=== PATIENT | male | born 1985 | race Caucasian/White ===

== ENCOUNTER 2016-08-07 13:01 | Inpatient (IN) ==
[2016-08-07] MEDS ORDERED: Sodium Bicarbonate 50 MEQ/50 ML VIAL IVP ONE (13:18)
[2016-08-07] MEDS ORDERED: *HR* Etomidate 20 MG/10 ML AMPUL IVP ONE (13:18)
[2016-08-07] MEDS ORDERED: *HR* Succinylcholine 200 MG/10 ML VIAL IVP ONE (13:18)
[2016-08-07] MEDS ORDERED: *HR* Rocuronium Bromide 50 MG/5 ML VIAL IVP ONE (13:18)
--- NOTE | 2016-08-07 13:25 | Emergency Department Note ---
Disposition Clinical Impression: Acute kidney injury, Respiratory acidosis Altered mental status Qualifiers: Altered mental status type: unspecified Qualified Code(s): R41.82 - Altered mental status, unspecified Leukocytosis Qualifiers: Leukocytosis type: unspecified Qualified Code(s): D72.829 - Elevated white blood cell count, unspecified Disposition: Admitted As Inpatient Condition: Critical Time of Disposition: 13:57 Altered Mental Status HPI - General Chief Complaint: ED Overdose Stated Complaint: OD Time Seen by Provider: 08/07/16 13:06 Source: EMS Mode of arrival: EMS Limitations: altered mental status, other Nursing Notes Reviewed: Yes Vital Signs Reviewed: Yes - History of Present Illness HPI Narrative: Patient presents from home with altered mental status. The patient is unable to convey any meaningful history. He was found unresponsive by EMS. Intraosseous line started. Narcan given without improvement in symptoms. MD complaint: altered mental status, decreased responsiveness Onset (ago): unknown Consistency of Symptoms: constant Context: drug abuse, history of similar presentation Treatments prior to arrival: IV fluid, spinal immobilization - Related Data Home Medications Medication Instructions Recorded Confirmed No Known Home Drugs 08/07/16 08/07/16 Allergies Allergy/AdvReac Type Severity Reaction Status Date / Time No Known Allergies Allergy Verified 07/22/15 09:44 Limitations: ROS unobtainable due to patients medical condition Past Medical History - Past Medical History Source: old records reviewed Medical history: Reports: no medical history, non-contributory Psychiatric history: Reports: anxiety, depression - Social History Smoking Status: Current every day smoker Smokeless Tobacco Status: No Alcohol use: Reports: occasionally Drug use: Reports: cocaine, opiates, marijuana, IVDU, prescription drug abuse, other Physical Exam obtunded. Not arousable to verbal or painful stimuli. Spontaneous respirations present - General Limitations: altered mental status, other General appearance: obtunded, other - Head Head exam: atraumatic - Eye Eye exam: Present: PERRL (Dilated and sluggish) - ENT ENT exam: normal exam - Neck Neck exam: Present: normal inspection - Chest Chest inspection: Present: normal inspection, symmetric chest wall rise - Respiratory Respiratory exam: Present: other (Course rhonchorous breath sounds) - Cardiovascular Cardiovascular exam: Present: tachycardia, normal heart sounds - Abdominal Exam Abdominal exam: Present: soft - Rectal Exam Rectal exam: Present: deferred - Male exam: Present: other (Raised verrucous lesions on scrotum) - Extremities Exam Extremities exam: Present: normal inspection, other (Track johnson present to LUE) - Neurological Exam Neurological exam: Present: other (Nonverbal. Does not follow commands) - Skin Skin exam: Present: normal color, other (skin cool to touch) Course Course Narrative: Patient presents with altered mental status. Suspicion for opiate use. The patient was given Narcan prehospital without improvement of symptoms I did review the patient's most recent ED visit and was documented at that time that he was using cocaine and opiates but had no previous medical history otherwise We gave the patient rocuronium and etomidate for rapid sequence intubation. The patient continued having spontaneous respirations. We suspected that the intraosseous line was ineffective. Additional IV placement obtained and additional RSI medications given. Patient intubated by the resident physician under my supervision on first attempt. Right femoral triple lumen catheter placed by the resident physician under my supervision. Specimens sent to lab - Reevaluation(s) Reevaluation #1: The patient has a significant leukocytosis with neutrophilic predominance and bandemia. His history is not consistent with sepsis. I favor the elevated white count and shift to be secondary to a stress response. Dr. Bianchi agreeable to admit the patient. It was mutually agreed to withhold antibiotic therapy pending reevaluation and blood cultures. Reevaluation #2: Additional information obtained from the patient's mom. She last saw him around midnight last night which was approximately 13 hours ago. She suspects substance abuse. The patient had no complaints prior to this - Consultations Consultation #1: Dr. Dougherty accepts ICU admission Vital Signs Temperature 0 F L 08/07/16 13:02 Pulse Rate 129 08/07/16 13:02 Respiratory Rate 33 08/07/16 13:02 Blood Pressure 0/0 08/07/16 13:02 O2 Sat by Pulse Oximetry 100 08/07/16 13:02 Temperature 0 F L 08/07/16 13:02 Pulse Rate 111 08/07/16 13:18 Respiratory Rate 18 08/07/16 13:48 Blood Pressure 175/118 08/07/16 13:18 O2 Sat by Pulse Oximetry 100 08/07/16 13:48 Oxygen Delivery Oxygen Delivery Ventilator Procedures - Central Line Placement Right Femoral Central Line Inserted*: Yes Central Line Insertion: emergent Procedural Pause: amina and assess the site Patient Placed on Monitor/Pulse Ox: Yes During the Procedure: clinician is wearing sterile gloves, cap, mask,& gown during insertion Central Line Prep: Povidone-Iodine 1% Prep the Procedure Site: apply chloraprep to the skin using a back and forth scrubbing motion, allow prep to dry Ultrasound Used for Placement: No Central Line Lumen Inserted: triple Post Procedure: sutured in place Complications: none - Intubation Time out performed: No sedative: Etomidate paralytic: Rocuronium Laryngoscope: Mayi ET Tube Size: 7.5 ET Tube Uncuffed: No Tube Secured Location: lips Tube Placement Confirmation: visualized tube passing through cords, equal breath sounds bilaterally Patient Tolerated Procedure: no complications Intubation Complications: none Altered Mental Status - Medical Records Medical records reviewed: Yes I reviewed the patient's medical records. - Lab Data Lab results reviewed: Yes I reviewed the patient's lab results. Result diagrams: 08/07/16 13:20 08/07/16 13:20 Lab Results 08/07/16 08/07/16 08/07/16 Range/Units 13:03 13:18 13:18 WBC (4.3-11.1) K/mcL RBC (4.19-5.50) M/mcL Hgb (12.9-16.9) g/dL Hct (37.5-50.1) % MCV (83.0-100.0) fL MCH (28.0-33.3) pg MCHC (31.6-35.5) g/dL RDW (11.5-14.5) % Plt Count (140-400) K/mcL MPV (9.4-12.4) fL Seg Neutrophils % % Band Neutrophils % (0-4) % Lymphocytes % % Monocytes % % Neutrophils # (1.6-8.9) K/mcL Lymphocytes # (0.6-4.6) K/mcL Monocytes # (0.0-1.3) K/mcL Platelet Estimate (Normal) ABG pH (7.32-7.45) pH Units ABG pCO2 (35-45) mmHg ABG pO2 (85-104) mmHg ABG HCO3 (21-27) mEQ/L ABG Total CO2 (20-26) mEq/L ABG O2 Saturation (95-98) % ABG Base Excess (-2.0 to 3.0) mEq/L Blood Gas Modality Inspired O2 % Sodium (136-145) mEq/L Potassium (3.5-4.5) mEq/L Chloride (98-109) mEq/L Carbon Dioxide (19-29) mEq/L BUN (8-26) mg/dL Creatinine (0.72-1.25) mg/dL Est GFR ( Amer) (> 60) Est GFR (Non-Af Amer) (> 60) BUN/Creatinine Ratio (6-26) Glucose (70-99) mg/dL POC Glucose 59 (58-89) Calculated Osmolality (280-300) Calcium (8.6-10.8) mg/dL Total Bilirubin (0.2-1.2) mg/dL Direct Bilirubin (0.0-0.5) mg/dL Indirect Bilirubin (0.0-1.2) mg/dL AST (5-34) Units/L ALT (0-55) Units/L Alkaline Phosphatase (38-126) Units/L Creatine Kinase (30-200) Units/L Serum Total Protein (6.0-8.3) g/dL Albumin (3.5-5.0) g/dL Globulin (2.4-3.5) g/dL Albumin/Globulin Ratio (1.1-2.2) Urine Color Yellow (Yellow) Urine Clarity Cloudy A (Clear) Urine pH 6.0 (5.0-8.0) pH Units Ur Specific [place] 1.016 (1.010-1.025) Urine Protein 30 H (Neg-Trace) mg/dL Urine Glucose (UA) Normal (Normal) mg/dL Urine Ketones Negative (Negative) mg/dL Urine Blood Moderate H (Negative) Urine Nitrite Negative (Negative) Urine Bilirubin Negative (Negative) Urine Urobilinogen Normal (Normal) mg/dL Ur Leukocyte Esterase Negative (Negative) Urine Microscopic RBC 15-30 H (0-3) per hpf Urine Microscopic WBC 5-15 H (0-3) per hpf Ur Squamous Epith Cells Many H (None-Few) per lpf Urine Bacteria None Seen (None-Few) per hpf Hyaline Casts Few (None-Few) per lpf Salicylates (15-30) mg/dL Urine Opiates Screen Negative (Ofvxvg=803) ng/mL Acetaminophen (10-30) mcg/mL Ur Barbiturates Screen Negative (Mhvwaq=479) ng/mL Ur Phencyclidine Scrn Negative (Cutoff=25) ng/mL Ur Amphetamines Screen Negative (Xffkmh=8244) ng/mL U Benzodiazepines Scrn Negative (Emjkdm=127) ng/mL Urine Cocaine Screen Positive H (Cutoff= 300) ng/mL U Marijuana (THC) Screen Negative (Cutoff = 50) ng/mL Ethyl Alcohol (0-10) mg/dL 08/07/16 08/07/16 08/07/16 Range/Units 13:20 13:20 13:20 WBC 28.5 H (4.3-11.1) K/mcL RBC 5.00 (4.19-5.50) M/mcL Hgb 15.1 (12.9-16.9) g/dL Hct 46.7 (37.5-50.1) % MCV 93.4 (83.0-100.0) fL MCH 30.2 (28.0-33.3) pg MCHC 32.3 (31.6-35.5) g/dL RDW 13.0 (11.5-14.5) % Plt Count 259 (140-400) K/mcL MPV 8.9 L (9.4-12.4) fL Seg Neutrophils % 82.0 % Band Neutrophils % 10.0 H (0-4) % Lymphocytes % 4.0 % Monocytes % 4.0 % Neutrophils # 26.2 H (1.6-8.9) K/mcL Lymphocytes # 1.1 (0.6-4.6) K/mcL Monocytes # 1.1 (0.0-1.3) K/mcL Platelet Estimate Normal (Normal) ABG pH (7.32-7.45) pH Units ABG pCO2 (35-45) mmHg ABG pO2 (85-104) mmHg ABG HCO3 (21-27) mEQ/L ABG Total CO2 (20-26) mEq/L ABG O2 Saturation (95-98) % ABG Base Excess (-2.0 to 3.0) mEq/L Blood Gas Modality Inspired O2 % Sodium 143 (136-145) mEq/L Potassium 5.4 H (3.5-4.5) mEq/L Chloride 103 (98-109) mEq/L Carbon Dioxide 17 L (19-29) mEq/L BUN 15 (8-26) mg/dL Creatinine 2.61 H (0.72-1.25) mg/dL Est GFR ( Amer) 35 L (> 60) Est GFR (Non-Af Amer) 29 L (> 60) BUN/Creatinine Ratio 6 (6-26) Glucose 49 L (70-99) mg/dL POC Glucose (58-89) Calculated Osmolality 294 (280-300) Calcium 8.7 (8.6-10.8) mg/dL Total Bilirubin 0.3 (0.2-1.2) mg/dL Direct Bilirubin 0.2 (0.0-0.5) mg/dL Indirect Bilirubin 0.1 (0.0-1.2) mg/dL AST 67 H (5-34) Units/L ALT 74 H (0-55) Units/L Alkaline Phosphatase 89 (38-126) Units/L Creatine Kinase 426 H (30-200) Units/L Serum Total Protein 8.9 H (6.0-8.3) g/dL Albumin 4.3 (3.5-5.0) g/dL Globulin 4.6 H (2.4-3.5) g/dL Albumin/Globulin Ratio 0.9 L (1.1-2.2) Urine Color (Yellow) Urine Clarity (Clear) Urine pH (5.0-8.0) pH Units Ur Specific [place] (1.010-1.025) Urine Protein (Neg-Trace) mg/dL Urine Glucose (UA) (Normal) mg/dL Urine Ketones (Negative) mg/dL Urine Blood (Negative) Urine Nitrite (Negative) Urine Bilirubin (Negative) Urine Urobilinogen (Normal) mg/dL Ur Leukocyte Esterase (Negative) Urine Microscopic RBC (0-3) per hpf Urine Microscopic WBC (0-3) per hpf Ur Squamous Epith Cells (None-Few) per lpf Urine Bacteria (None-Few) per hpf Hyaline Casts (None-Few) per lpf Salicylates < 5.0 L (15-30) mg/dL Urine Opiates Screen (Jonvnf=934) ng/mL Acetaminophen < 1.0 L (10-30) mcg/mL Ur Barbiturates Screen (Zbnsks=828) ng/mL Ur Phencyclidine Scrn (Cutoff=25) ng/mL Ur Amphetamines Screen (Ykznfv=1188) ng/mL U Benzodiazepines Scrn (Lsygma=489) ng/mL Urine Cocaine Screen (Cutoff= 300) ng/mL U Marijuana (THC) Screen (Cutoff = 50) ng/mL Ethyl Alcohol < 10 (0-10) mg/dL 08/07/16 Range/Units 13:27 WBC (4.3-11.1) K/mcL RBC (4.19-5.50) M/mcL Hgb (12.9-16.9) g/dL Hct (37.5-50.1) % MCV (83.0-100.0) fL MCH (28.0-33.3) pg MCHC (31.6-35.5) g/dL RDW (11.5-14.5) % Plt Count (140-400) K/mcL MPV (9.4-12.4) fL Seg Neutrophils % % Band Neutrophils % (0-4) % Lymphocytes % % Monocytes % % Neutrophils # (1.6-8.9) K/mcL Lymphocytes # (0.6-4.6) K/mcL Monocytes # (0.0-1.3) K/mcL Platelet Estimate (Normal) ABG pH 7.13 L* (7.32-7.45) pH Units ABG pCO2 59 H (35-45) mmHg ABG pO2 403 H (85-104) mmHg ABG HCO3 19.6 L (21-27) mEQ/L ABG Total CO2 21.4 (20-26) mEq/L ABG O2 Saturation 100 H (95-98) % ABG Base Excess -10.4 L (-2.0 to 3.0) mEq/L Blood Gas Modality VC Inspired O2 100 % Sodium (136-145) mEq/L Potassium (3.5-4.5) mEq/L Chloride (98-109) mEq/L Carbon Dioxide (19-29) mEq/L BUN (8-26) mg/dL Creatinine (0.72-1.25) mg/dL Est GFR ( Amer) (> 60) Est GFR (Non-Af Amer) (> 60) BUN/Creatinine Ratio (6-26) Glucose (70-99) mg/dL POC Glucose (58-89) Calculated Osmolality (280-300) Calcium (8.6-10.8) mg/dL Total Bilirubin (0.2-1.2) mg/dL Direct Bilirubin (0.0-0.5) mg/dL Indirect Bilirubin (0.0-1.2) mg/dL AST (5-34) Units/L ALT (0-55) Units/L Alkaline Phosphatase (38-126) Units/L Creatine Kinase (30-200) Units/L Serum Total Protein (6.0-8.3) g/dL Albumin (3.5-5.0) g/dL Globulin (2.4-3.5) g/dL Albumin/Globulin Ratio (1.1-2.2) Urine Color (Yellow) Urine Clarity (Clear) Urine pH (5.0-8.0) pH Units Ur Specific [place] (1.010-1.025) Urine Protein (Neg-Trace) mg/dL Urine Glucose (UA) (Normal) mg/dL Urine Ketones (Negative) mg/dL Urine Blood (Negative) Urine Nitrite (Negative) Urine Bilirubin (Negative) Urine Urobilinogen (Normal) mg/dL Ur Leukocyte Esterase (Negative) Urine Microscopic RBC (0-3) per hpf Urine Microscopic WBC (0-3) per hpf Ur Squamous Epith Cells (None-Few) per lpf Urine Bacteria (None-Few) per hpf Hyaline Casts (None-Few) per lpf Salicylates (15-30) mg/dL Urine Opiates Screen (Wlnsnr=278) ng/mL Acetaminophen (10-30) mcg/mL Ur Barbiturates Screen (Fvfwje=134) ng/mL Ur Phencyclidine Scrn (Cutoff=25) ng/mL Ur Amphetamines Screen (Sykwum=4042) ng/mL U Benzodiazepines Scrn (Rwnxaw=931) ng/mL Urine Cocaine Screen (Cutoff= 300) ng/mL U Marijuana (THC) Screen (Cutoff = 50) ng/mL Ethyl Alcohol (0-10) mg/dL - Radiology Data Radiology results reviewed: Yes I reviewed the patient's radiology results. - EKG Data EKG attestation: Yes I reviewed and interpreted this EKG. EKG results narrative: Sinus tach 128 MD 153 QRS 90 QT/QTC 319/395 TPA Checklist - LKW: 3-4.5 hrs Add. Contraindications Patient/family understanding: The patient/family members have been counseled and understood the risk, benefit , and alternatives of treatment. Critical Care Time Critical Care Time: Yes Total Critical Care Time: 45 Attestation: She presented with altered mental status of undifferentiated etiology requiring endotracheal intubation for airway protection, central line placement, ICU admission
[2016-08-07 13:31] LABS: Bilirubin,Urine Negative (Negative); Blood,Urine Moderate (Negative); Clarity,Urine Cloudy (Clear); Color,Urine Yellow (Yellow); Glucose,Urine (UA) Normal (Normal); Ketones,Urine Negative (Negative); Leukocyte Esterase,Urine Negative (Negative); Nitrite,Urine Negative (Negative); Protein,Urine 30 mg/dL (Neg-Trace); Specific Gravity,Urine 1.016 (1.010-1.025); Urobilinogen,Urine Normal (Normal)
[2016-08-07 13:33] LABS: Bacteria,Urine None Seen per hpf (None-Few); Hyaline Casts,Urine Few per lpf (None-Few); RBC,Urine 15-30 per hpf (0-3); Squamous Epithelial Cell,Urine Many per lpf (None-Few)
[2016-08-07 13:34] LABS: ABG Base Excess -10.4 mEq/L (-2.0 to 3.0); ABG HCO3 19.6 mEQ/L (21-27); ABG Oxygen Saturation 100 % (95-98); ABG PCO2 59 mmHg (35-45); ABG PO2 403 mmHg (85-104); ABG TCO2 21.4 mEq/L (20-26)
[2016-08-07 13:36] LABS: Hematocrit 46.7 % (37.5-50.1); Hemoglobin 15.1 g/dL (12.9-16.9); Mean Corpuscular HGB Conc 32.3 g/dL (31.6-35.5); Mean Corpuscular Hemoglobin 30.2 pg (28.0-33.3); Mean Corpuscular Volume 93.4 fL (83.0-100.0); Mean Platelet Volume 8.9 fL (9.4-12.4); Platelet Count 259 K/mcL (140-400)
[2016-08-07 13:36] LABS: ABG PH 7.13 pH Units (7.32-7.45); Blood Gas FiO2 100 %
[2016-08-07 13:38] LABS: Amphetamine Screen,Urine Negative ng/mL (Cutoff=1000); Barbiturate Screen,Urine Negative ng/mL (Cutoff=200); Benzodiazepines Screen,Urine Negative ng/mL (Cutoff=200); Cannabinoid Screen,Urine Negative ng/mL (Cutoff = 50); Cocaine Screen,Urine Positive ng/mL (Cutoff= 300); Opiate Screen,Urine Negative ng/mL (Cutoff=300); Phencyclidine Screen,Urine Negative ng/mL (Cutoff=25)
[2016-08-07 13:51] LABS: Acetaminophen < 1.0 mcg/mL (10-30); Alanine Aminotransferase 74 Units/L (0-55); Albumin 4.3 g/dL (3.5-5.0); Albumin/Globulin Ratio 0.9 (1.1-2.2); Alkaline Phosphatase 89 Units/L (38-126); Aspartate Amino Transferase 67 Units/L (5-34); BUN/Creatinine Ratio 6 (6-26); Bilirubin,Direct 0.2 mg/dL (0.0-0.5); Bilirubin,Indirect 0.1 mg/dL (0.0-1.2); Bilirubin,Total 0.3 mg/dL (0.2-1.2); Blood Urea Nitrogen 15 mg/dL (8-26); Calcium 8.7 mg/dL (8.6-10.8); Carbon Dioxide 17 mEq/L (19-29); Chloride 103 mEq/L (98-109); Ethanol < 10 mg/dL (0-10); Globulin 4.6 g/dL (2.4-3.5); Glucose 49 mg/dL (70-99); Osmolality,Calculated 294 (280-300); Potassium 5.4 mEq/L (3.5-4.5); Salicylate < 5.0 mg/dL (15-30); Sodium 143 mEq/L (136-145); Total Protein 8.9 g/dL (6.0-8.3); eGFR For African Americans 35 (> 60); eGFR For Non-African Americans 29 (> 60)
[2016-08-07 13:53] LABS: Lymphocytes # 1.1 K/mcL (0.6-4.6); Monocytes # 1.1 K/mcL (0.0-1.3); Neutrophils # 26.2 K/mcL (1.6-8.9); Platelet Estimate Normal (Normal)
[2016-08-07] MEDS ORDERED: 0.9 % Sodium Chloride 1,000 ML IVC ONE ×3 (13:55)
[2016-08-07] MEDS ORDERED: Naloxone 0.4 MG/ML INJ IVP PRN (14:18)
[2016-08-07] MEDS: *HR* Dextrose 50 % in Water (Syg) 50 ML SYRINGE IVP ONE ×2 (14:22→15:15)
[2016-08-07] MEDS ORDERED: *HR* Midazolam HCl 2 MG/2 ML VIAL ONE (14:28)
[2016-08-07] MEDS ORDERED: 0.9 % Sodium Chloride 1,000 ML IVC SCH (14:30)
--- NOTE | 2016-08-07 15:14 | Event Note ---
Date of Encounter: 08/07/16 Time of Encounter: 15:11 Critical care attending note: The patient was seen and examined with the house staff. Full resident note follow: 1. Acute respiratory failure 2. Encephalopathy 3. Acute renal failure 4. Anion gap metabolic acidosis 5. History of polysubstance abuse Acute respiratory failure in the setting of likely drug overdose and encephalopathy. Continue full vent support as current mental status precludes breathing trial or extubation. Encephalopathy may be due to drug overdose. However, there is an unknown down time and I am concerned for anoxic encephalopathy. We will check an neuron specific enolase. CT scan of the head was unremarkable. If his mental status does not improve we can consider neuro consultation, EEG, and MRI. Acute renal failure of unclear etiology. Elevation in creatinine seems out of proportion to CPK, but rhabdomyolysis is in the differential diagnosis. We will continue to aggressively hydrate and trend CPK. Given underlying anion gap metabolic acidosis, will further investigate for an ingestion (salicylate and alcohol level normal) with volatile panel (including methanol and ethylene glycol level). Prognosis guarded.
[2016-08-07] MEDS ORDERED: Norepinephrine 4 MG in D5% in Water 250 ML IVC SCH (15:30)
[2016-08-07] MEDS: Ringers Solution, Lactated 1,000 ML IVC SCH ×2 (15:58→23:15)
[2016-08-07] MEDS: FentaNYL (PF) 1,000 MCG in 0.9 % Sodium Chloride 80 ML IVC SCH (15:59)
--- NOTE | 2016-08-07 16:07 | Pulmonology History & Physical ---
Date of Encounter: 08/07/16 Time of Encounter: 15:28 Assessment and Plan (1) Altered mental status Current visit: Yes Status: Acute 31-year-old male with a history of substance abuse including cocaine, opiates, prescription drugs, marijuana presented to the ER with altered mental status. On admission patient was tachycardic,tachypnic, hypertensive. He was unable to protect his airway and was intubated. Patient's altered mental status is most likely secondary to substance abuse including injecting cocaine which is positive on this urine toxicity. However patient has a high anion gap metabolic acidosis (gap of 23) and osmolar gap of 10. This may indicate the patient may also have ingested another substance. Plan: -Methanol, ethylene glycol, neuron specific enolase, trend troponin, ABG, blood cultures, CBC, BMP, lactic acid. Qualifiers: Altered mental status type: somnolence Qualified Code(s): R40.0 - Somnolence (2) Cocaine overdose Current visit: Yes Status: Acute Patient has presented before with cocaine overdose. However this time he was also altered. -Urine drug screen positive of cocaine use. -Patient was found with 2 syringes and bilateral antecubital fossa track johnson. Family states there was no indication of other substances, bottles around patient when they found him unconscious. -Urine drug screen negative for other illicit drugs. -While cocaine does not usually cause unresponsiveness, there may have been something else patient might be abusing unknown at this time. Qualifiers: Encounter type: subsequent encounter Injury intent: undetermined intent Qualified Code(s): T40.5X4D - Poisoning by cocaine, undetermined, subsequent encounter (3) High anion gap metabolic acidosis Current visit: Yes Status: Acute Patient's anion gap is 23. His lactic acid is elevated at 5.3. -Patient given 1 amp of bicarbonate in ER. Recheck lactic acid 6 hours. -Urine drug screen negative for salicylate and alcohol -Pending methyl on ethylene glycol levels. -Repeat BMP in 6 hours. (4) Elevated troponin Current visit: Yes Status: Acute Patient's initial troponin was 0.4. This may be secondary to cocaine abuse. He initially came up hypertension and tachycardia. Initial EKG and repeat EKGs show sinus tachycardia. Repeat EKG in the morning. Trend troponins. Echocardiogram ordered. Tele monitor. (5) Acute kidney injury Current visit: Yes Status: Acute TRISTA in the setting of possible rhabdomyolysis and cocaine use. Scr 2.61. Baseline kidney function WNL. -We are aggressively hydrating the patient. We will repeat BMP. -retroperitoneal US. (6) Rhabdomyolysis Current visit: Yes Status: Suspected Patient was found unresponsive and his last known normal was 13 hours before being found by his parents. his initial CK was 426. We will repeat CK tomorrow, aggressively hydrate with D5 and half-normal saline as patient is hypoglycemic as well. -BMP tomorrow Qualifiers: Rhabdomyolysis type: non-traumatic Qualified Code(s): M62.82 - Rhabdomyolysis (7) Leukocytosis Current visit: Yes Status: Acute Patient has leukocytosis of 28 with a bandemia of 10%. Chest x-ray was negative for any acute changes, CT head was negative. On physical exam there is no signs of infection. Patient is afebrile. -Leukocytosis may be secondary to stress reaction and less likely infectious etiology. We will continue to follow. -Blood cultures have been sent. We will hold off antibiotics. -Repeat CBC. Qualifiers: Leukocytosis type: bandemia Qualified Code(s): D72.825 - Bandemia (8) DVT prophylaxis Current visit: Yes Status: Acute Heparin subcutaneous History of Present Illness Chief complaint: AMS HPI: Mr. Covington is a 31 year old male with past medical history of drug abuse including cocaine, heroine, benzodiazepines presents with altered mental status. According to family patient was seen last night around 12AM. She was found at noon by his family unconscious with 2 empty syringes and track johnson on both distal forearms b/l. Because of his mental status and testes opiates ear was suspicious for opiate use and patient was given Narcan without improvement of symptoms. Patient was intubated and a right femoral triple- lumen catheter was placed in the ER. Urine toxicology reports were positive for cocaine. Furthermore patient's BMP indicated TRISTA. He had a leukocytosis of 20.5. Patient's ABG showed a pH of 7.13. Past Med Surg Social Fam HX - Past Medical History Medical history: no medical history, non-contributory Psychiatric history: anxiety, depression - Social History Smoking Status: Current every day smoker Smokeless Tobacco Status: No Alcohol use: occasionally Drug use: cocaine, opiates, marijuana, IVDU, prescription drug abuse, other Medications and Allergies No Known Home Drugs 08/07/16 [History] Allergies No Known Allergies Allergy (Verified 07/22/15 09:44) ROS unobtainable: due to endotracheal tube, due to mental status All Systems: A 10-system review of systems was performed and is negative for pertinent findings except as documented above in the HPI. Physical Examination Vital Signs: Vital Signs, Last 4 Hours Pulse Resp BP Pulse Ox 08/07/16 15:23 18 91/59 98 08/07/16 15:11 18 106/71 08/07/16 14:40 112 106/71 100 General appearance: asleep Eyes: nonicteric Neck: no lymphadenopathy Effort: normal Inspection: normal Auscultation: bilateral: clear Cardiovascular: other (Sinus tachycardia) Gastrointestinal: normoactive bowel sounds, soft, non-tender, non-distended Integumentary: other (Track johnson on bilateral antecubital fossa) Extremities: no cyanosis, no edema, no clubbing, other (No evidence of splinter hemorrhages, Janeway lesions, Cerner notes.) unable to assess due to mental status Results - Laboratory Findings CBC and BMP: 08/07/16 13:20 08/07/16 13:20 ABG ABG pH 7.13 pH Units (7.32-7.45) L* 08/07/16 13:27 ABG pCO2 59 mmHg (35-45) H 08/07/16 13:27 ABG pO2 403 mmHg (85-104) H 08/07/16 13:27 ABG O2 Saturation 100 % (95-98) H 08/07/16 13:27 Abnormal lab findings: Abnormal lab results WBC 28.5 K/mcL (4.3-11.1) H 08/07/16 13:20 MPV 8.9 fL (9.4-12.4) L 08/07/16 13:20 Band Neutrophils % 10.0 % (0-4) H 08/07/16 13:20 Neutrophils # 26.2 K/mcL (1.6-8.9) H 08/07/16 13:20 ABG pH 7.13 pH Units (7.32-7.45) L* 08/07/16 13:27 ABG pCO2 59 mmHg (35-45) H 08/07/16 13:27 ABG pO2 403 mmHg (85-104) H 08/07/16 13:27 ABG HCO3 19.6 mEQ/L (21-27) L 08/07/16 13:27 ABG O2 Saturation 100 % (95-98) H 08/07/16 13:27 ABG Base Excess -10.4 mEq/L (-2.0 to 3.0) L 08/07/16 13:27 Potassium 5.4 mEq/L (3.5-4.5) H 08/07/16 13:20 Carbon Dioxide 17 mEq/L (19-29) L 08/07/16 13:20 Creatinine 2.61 mg/dL (0.72-1.25) H 08/07/16 13:20 Est GFR ( Amer) 35 (> 60) L 08/07/16 13:20 Est GFR (Non-Af Amer) 29 (> 60) L 08/07/16 13:20 Glucose 49 mg/dL (70-99) L 08/07/16 13:20 POC Glucose 52 (58-89) L 08/07/16 15:09 Lactic Acid 5.2 mmol/L (0.5-2.2) H* 08/07/16 14:54 AST 67 Units/L (5-34) H 08/07/16 13:20 ALT 74 Units/L (0-55) H 08/07/16 13:20 Creatine Kinase 426 Units/L (30-200) H 08/07/16 13:20 Troponin I 0.41 ng/mL (0-0.03) H* 08/07/16 14:54 Serum Total Protein 8.9 g/dL (6.0-8.3) H 08/07/16 13:20 Globulin 4.6 g/dL (2.4-3.5) H 08/07/16 13:20 Albumin/Globulin Ratio 0.9 (1.1-2.2) L 08/07/16 13:20 Urine Clarity Cloudy (Clear) A 08/07/16 13:18 Urine Protein 30 mg/dL (Neg-Trace) H 08/07/16 13:18 Urine Blood Moderate (Negative) H 08/07/16 13:18 Urine Microscopic RBC 15-30 per hpf (0-3) H 08/07/16 13:18 Urine Microscopic WBC 5-15 per hpf (0-3) H 08/07/16 13:18 Ur Squamous Epith Cells Many per lpf (None-Few) H 08/07/16 13:18 Salicylates < 5.0 mg/dL (15-30) L 08/07/16 13:20 Acetaminophen < 1.0 mcg/mL (10-30) L 08/07/16 13:20 Urine Cocaine Screen Positive ng/mL (Cutoff= 300) H 08/07/16 13:18
--- NOTE | 2016-08-07 16:40 | Electrocardiograph Report ---
[address] [place], [place] [address] Test Date: 2016-08-07 Pat Name: Eddie Covington Department: 103 Room: [facility] Gender: M Bobbin Doffer: : 1985 Requested By: Param Paz Order Number: [id number] Reading MD: Donna Pedro Measurements Intervals [place] Rate: 128 P: 57 GA: 153 QRS: 44 QRSD: 90 T: 19 QT: 319 QTc: 395 Interpretive Statements SINUS TACHYCARDIA ABNORMAL RHYTHM ECG Electronically Signed On 08-07-2016 16:38:36 EDT by Donna Pedro
[2016-08-07] MEDS ORDERED: *HR* Dextrose 50 % in Water (Syg) 50 ML SYRINGE IVP ONE (16:49)
[2016-08-07 16:54] LABS: ABG Base Excess -3.5 mEq/L (-2.0 to 3.0); ABG HCO3 23.1 mEQ/L (21-27); ABG Oxygen Saturation 97 % (95-98); ABG PCO2 47 mmHg (35-45); ABG PO2 103 mmHg (85-104); ABG TCO2 24.5 mEq/L (20-26)
[2016-08-07 16:57] LABS: Blood Gas FiO2 30 %
[2016-08-07] MEDS ORDERED: D5% in 0.45% NACL 1,000 ML IVC SCH (17:00)
[2016-08-07] MEDS ORDERED: *HR* Heparin 5,000 UNIT/ML VIAL SQ SCH ×2 (18:00)
[2016-08-07] MEDS: D5% in 0.45% NACL 1,000 ML IVC SCH ×2 (19:00→23:10)
[2016-08-07 23:17] LABS: Calcium 7.4 mg/dL (8.6-10.8)
[2016-08-07 23:18] LABS: Potassium 5.4 mEq/L (3.5-4.5)
[2016-08-07] MEDS ORDERED: *HR* Heparin 5,000 UNIT/ML VIAL IVP ONE (23:29)
[2016-08-07] MEDS ORDERED: *HR* Heparin 5,000 UNIT/ML VIAL IVP PRN ×2 (23:29)
[2016-08-07 23:58] LABS: INR 1.2
[2016-08-08] LABS: Activated Partial Thrombo Time 27.4 Seconds (26.0-36.0)
[2016-08-08] MEDS: Heparin 25,000 UNIT/500 ML D5W 25,000 UNIT/500 ML MLS IVC SCH ×2 (00:27→23:24)
[2016-08-08] MEDS: Ringers Solution, Lactated 1,000 ML IVC SCH ×2 (03:44→07:21)
[2016-08-08 03:48] LABS: Basophils % 0.1 %; Eosinophils % 0.1 %; Hematocrit 38.4 % (37.5-50.1); Immature Granulocytes % 0.3 % (0-4); Lymphocytes # 3.8 K/mcL (0.6-4.6); Lymphocytes % 28.6 %; Mean Corpuscular HGB Conc 33.3 g/dL (31.6-35.5); Mean Corpuscular Volume 89.9 fL (83.0-100.0); Mean Platelet Volume 9.1 fL (9.4-12.4); Monocytes # 1.1 K/mcL (0.0-1.3); Monocytes % 8.1 %; Neutrophils # 8.4 K/mcL (1.6-8.9); Platelet Count 168 K/mcL (140-400); Red Blood Count 4.27 M/mcL (4.19-5.50); Red Cell Distribution Width 13.2 % (11.5-14.5); Segmented Neutrophils % 62.8 %
[2016-08-08 03:49] LABS: Hemoglobin 12.8 g/dL (12.9-16.9)
[2016-08-08 04:01] LABS: BUN/Creatinine Ratio 11 (6-26); Blood Urea Nitrogen 17 mg/dL (8-26); Calcium 7.5 mg/dL (8.6-10.8); Carbon Dioxide 25 mEq/L (19-29); Chloride 106 mEq/L (98-109); Glucose 113 mg/dL (70-99); Osmolality,Calculated 290 (280-300); Sodium 139 mEq/L (136-145); eGFR For African Americans > 60 (> 60); eGFR For Non-African Americans 55 (> 60)
[2016-08-08 04:04] LABS: Creatine Kinase 1590 Units/L (30-200); Potassium 3.8 mEq/L (3.5-4.5)
[2016-08-08] MEDS: D5% in 0.45% NACL 1,000 ML IVC SCH ×2 (04:20→09:23)
[2016-08-08] MEDS ORDERED: *HR* LORazepam 2 MG/ML VIAL IVP PRN (05:56)
[2016-08-08] MEDS ORDERED: *HR* Midazolam HCl 5 MG/5 ML VIAL IVP ONE (07:47)
[2016-08-08] MEDS ORDERED: *HR* Midazolam HCl 2 MG/2 ML VIAL IV ONE (07:47)
[2016-08-08] MEDS ORDERED: *HR* Succinylcholine 200 MG/10 ML VIAL IVP ONE (07:47)
[2016-08-08] MEDS ORDERED: *HR* Rocuronium Bromide 100 MG/10 ML VIAL IVC ONE (07:47)
[2016-08-08] MEDS ORDERED: *HR* Etomidate 40 MG/20 ML VIAL IVP ONE (07:47)
[2016-08-08] MEDS: FentaNYL (PF) 1,000 MCG in 0.9 % Sodium Chloride 80 ML IVC SCH (08:12)
[2016-08-08] MEDS ORDERED: Pantoprazole 40 MG VIAL IVPB SCH (09:00)
--- NOTE | 2016-08-08 09:30 | Pulmonology Progress Note ---
Date of Encounter: 08/08/16 Time of Encounter: 09:27 Assessment and Plan (1) Acute respiratory failure Current Visit: Yes Status: Acute Intubated for airway protection due to severe encephalopathy on 08/07/2016. Vast improvement in mental status over the past 24 hours. He is doing well with spontaneous breathing trial this a.m., and we have proceeded with extubation. Qualifiers: Respiratory failure complication: unspecified whether with hypoxia or hypercapnia Qualified Code(s): J96.00 - Acute respiratory failure, unspecified whether with hypoxia or hypercapnia (2) Encephalopathy Current Visit: Yes Status: Acute Suspect this was toxic and etiology and related to his polysubstance abuse and overdose. Appears significantly improved. There was initial concern for anoxic encephalopathy, however this seems less likely in light of his significant improvement. No current need for neuro consultation, EEG, or MRI. We will continue to limit sedating medications. (3) Acute renal failure Current Visit: Yes Status: Acute Possibly related to rhabdo. He is responded nicely to IV fluid hydration. We will continue to trend CPK, Chem-7, and urine output. Qualifiers: Acute renal failure type: unspecified Qualified Code(s): N17.9 - Acute kidney failure, unspecified (4) Elevated troponin Current Visit: Yes Status: Acute I suspect this is secondary to cocaine abuse. Troponins peaked as high as 1.85 overnight. A heparin drip was initiated. I have given him a dose of aspirin this morning. I recommend against beta blockers in light of cocaine use. We can treat tachycardia and hypertension with benzodiazepines. A transthoracic echocardiogram is pending. If there are no ischemic changes, it would be reasonable to discontinue the heparin drip. (5) High anion gap metabolic acidosis Current Visit: Yes Status: Acute Due to lactic acidosis, which has resolved. Ingestion seems less likely clinically, but ethylene glycol and methanol levels are pending. Alcohol level and salicylate level unremarkable. (6) Polysubstance abuse Current Visit: Yes Status: Acute Likely overdose led to his encephalopathy and intubation. Tox screen was positive for cocaine, but his clinical presentation was more consistent with an opioid overdose. If he remains stable, okay to transfer out of the medical ICU later today. Subjective Principal diagnosis: acute respiratory failure Interval history: Troponin increase significantly overnight, and the patient was started on a heparin drip. Patient is doing well on a breathing trial. He is interactive and following commands. Objective PUL Vital signs: Last Vital Signs Temp 100.4 F H 08/08/16 08:03 Pulse 84 08/08/16 09:00 Resp 12 08/08/16 09:00 BP 112/57 08/08/16 09:00 Pulse Ox 100 08/08/16 09:00 General: no acute distress, awake and interactive with caregivers, intubated Eyes: nonicteric ENT: ET tube in place Neck: supple, no lymphadenopathy Lungs: Coarse bilateral breath sounds Cardiovascular: regular rate and rhythm Gastrointestinal: normoactive bowel sounds, soft, non-tender, non-distended Integumentary: normal, track johnson and tattoos noted Extremities: no cyanosis, no edema Musculoskeletal: no deformities Neuro: Her active and following commands, non-focal exam Psych: Deferred secondary to endotracheal tube Ventilator Settings Ventilator Settings: Ventilator Settings, Last 8 Hours Ventilator Mode CPAP Ventilator Mode CPAP Ventilator Mode VC+ Ventilator Mode VC+ Ventilator Mode VC+ Ventilator Mode VC+ Ventilator Mode VC+ Ventilator Tidal Volume 450 Setting Ventilator Tidal Volume 450 Setting Ventilator Tidal Volume 450 Setting Ventilator Tidal Volume 450 Setting Ventilator Tidal Volume 450 Setting Ventilator Respiratory Rate 14 Setting Ventilator Respiratory Rate 14 Setting Ventilator Respiratory Rate 14 Setting Ventilator Respiratory Rate 14 Setting Ventilator Respiratory Rate 14 Setting Actual Respiratory Rate 10 Actual Respiratory Rate 11 Actual Respiratory Rate 15 Actual Respiratory Rate 15 Actual Respiratory Rate 22 Actual Respiratory Rate 22 Actual Respiratory Rate 15 Positive End Expiratory 5 Pressure Positive End Expiratory 5 Pressure Positive End Expiratory 5 Pressure Positive End Expiratory 5 Pressure Positive End Expiratory 5 Pressure Positive End Expiratory 5 Pressure Positive End Expiratory 5 Pressure Peak Inspiratory Airway 10 Pressure Peak Inspiratory Airway 15 Pressure Peak Inspiratory Airway 26 Pressure Peak Inspiratory Airway 26 Pressure Peak Inspiratory Airway 21 Pressure Peak Inspiratory Airway 21 Pressure Peak Inspiratory Airway 18 Pressure Results - Laboratory Findings CBC and BMP: 08/08/16 03:45 08/08/16 03:45 ABG ABG pH 7.30 pH Units (7.32-7.45) L D 08/07/16 Unknown ABG pCO2 47 mmHg (35-45) H 08/07/16 Unknown ABG pO2 103 mmHg (85-104) 08/07/16 Unknown ABG O2 Saturation 97 % (95-98) 08/07/16 Unknown PT/INR, D-dimer PT 13.0 Seconds (9.4-12.1) H 08/07/16 23:40 Abnormal lab findings: Abnormal lab results WBC 13.3 K/mcL (4.3-11.1) H D 08/08/16 03:45 Hgb 12.8 g/dL (12.9-16.9) L D 08/08/16 03:45 MPV 9.1 fL (9.4-12.4) L 08/08/16 03:45 Band Neutrophils % 10.0 % (0-4) H 08/07/16 13:20 PT 13.0 Seconds (9.4-12.1) H 08/07/16 23:40 APTT 71.2 Seconds (26.0-36.0) H D 08/08/16 06:00 ABG pH 7.30 pH Units (7.32-7.45) L D 08/07/16 Unknown ABG pCO2 47 mmHg (35-45) H 08/07/16 Unknown ABG Base Excess -3.5 mEq/L (-2.0 to 3.0) L 08/07/16 Unknown Creatinine 1.51 mg/dL (0.72-1.25) H 08/08/16 03:45 Est GFR (Non-Af Amer) 55 (> 60) L 08/08/16 03:45 Glucose 113 mg/dL (70-99) H 08/08/16 03:45 POC Glucose 95 (58-89) H 08/08/16 07:30 Serum Osmolality 307 mOsm/kg (280-300) H 08/07/16 15:50 Calcium 7.5 mg/dL (8.6-10.8) L 08/08/16 03:45 AST 67 Units/L (5-34) H 08/07/16 13:20 ALT 74 Units/L (0-55) H 08/07/16 13:20 Creatine Kinase 1590 Units/L (30-200) H D 08/08/16 03:45 Troponin I 1.79 ng/mL (0-0.03) H* 08/08/16 06:00 Serum Total Protein 8.9 g/dL (6.0-8.3) H 08/07/16 13:20 Globulin 4.6 g/dL (2.4-3.5) H 08/07/16 13:20 Albumin/Globulin Ratio 0.9 (1.1-2.2) L 08/07/16 13:20 Urine Clarity Cloudy (Clear) A 08/07/16 13:18 Urine Protein 30 mg/dL (Neg-Trace) H 08/07/16 13:18 Urine Blood Moderate (Negative) H 08/07/16 13:18 Urine Microscopic RBC 15-30 per hpf (0-3) H 08/07/16 13:18 Urine Microscopic WBC 5-15 per hpf (0-3) H 08/07/16 13:18 Ur Squamous Epith Cells Many per lpf (None-Few) H 08/07/16 13:18 Salicylates < 5.0 mg/dL (15-30) L 08/07/16 13:20 Acetaminophen < 1.0 mcg/mL (10-30) L 08/07/16 13:20 Urine Cocaine Screen Positive ng/mL (Cutoff= 300) H 08/07/16 13:18 - Clinical Findings Intake & Output: Intake & Output 08/07/16 08/08/16 08/08/16 23:59 07:59 15:59 Intake Total 2350 / 2350 1100 / 1100 1000 / 1000 Output Total 750 / 750 300 / 300 300 / 300 Balance 1600 / 1600 800 / 800 700 / 700 Weight 95.1 kg Consult Discharge Plan - Plan Referrals: NO,PCP [Primary Care Provider] -
[2016-08-08] MEDS ORDERED: Ringers Solution, Lactated 1,000 ML IVC SCH (09:43)
[2016-08-08] MEDS ORDERED: Aspirin 325 MG TABLET PO ONE (09:44)
--- NOTE | 2016-08-08 10:56 | ECHO - Doppler Report ---
Echocardiogram Name: Eddie Covington Date of Study: 08/07/2016 Date: 1985 Ht: 72.0 in Medical Record#: [id number] Age: 31 Wt: 207.0 lb Gender: Male BSA: 2.16 Order #: [id number] Location: [facility] Room #: IC7 Reading Physician: Caitlyn Platt DO Pattern Changer: JESSICA MoonT Ordering Physician: Javier Reza DO Primary Physician: None Indications: Elevated troponin Impressions: Severe global reduction in LV systolic function, EF estimated 30%. RV is normal in size with severe reduction in function. Mild mitral regurgitation. Mild tricuspid regurgitation. Mild pulmonic regurgitation. No pulmonary hypertension. Left Ventricular Wall Motion: Rest Echo Findings The apex, apical inferior, mid inferior, basal inferior, apical anterior, mid anterior, basal anterior, apical septal, mid inferior septal, basal inferior septal, apical lateral, mid anterior lateral, basal anterior lateral, mid anterior septal, mid inferior lateral, basal anterior septal and basal inferior lateral sinha were hypokinetic. Findings: Study Quality * Technically adequate exam. ECG Findings * Normal sinus rhythm. Left Atrium * Normal left atrial size. Aortic Valve * No aortic regurgitation. * Trileaflet aortic valve. * Normal aortic valve structure. * No aortic stenosis. Tricuspid Valve * Normal tricuspid valve structure. * Mild tricuspid regurgitation. Pulmonic Valve * Pulmonic valve is not well visualized. * No pulmonic stenosis. * Mild pulmonic regurgitation. Pulmonary Artery * Pulmonary artery not well visualized. Mitral Valve * No mitral stenosis. * Mild mitral regurgitation. * Normal structure. Left Ventricle * Probably pseudonormal LV diastolic function. * LVEF 30%. * Normal LV size and wall thickness. Right Atrium * Normal right atrial size. Interatrial Septum * No evidence of PFO by color Doppler. Pericardium * There is no pericardial effusion present. IVC * The IVC is not dilated. Right Ventricle * Normal RV size with severe reduction in function. Aorta * Normally sized aortic root. History Measurements: BP: 112/ 60 2D Normal Values IVSd: 1.10 cm 0.6 - 1.0 cm LVIDd: 4.40 cm 3.7 - 5.6 cm LVPWd: .90 cm 0.6 - 1.1 cm LVIDs: 3.60 cm 1.5 - 3.6 cm AO: 2.30 cm < 4.0 cm LA: 2.70 cm 2.0 - 4.0cm %FS: 18.20 cm >25 % LA volume: 28 Mitral Valve Peak E:.62 m/sec Peak A:.37 m/sec E/A Ratio:1.7 Peak E' Lat Los:14.4 cm/s Peak E' Med Los:8.89 cm/s E/E' Lat Ratio:4.3 E/E' Med Ratio:7 Tricuspid Valve TV Regurg Peak Grad: 17.00mmHg TV Regurg Peak Los: 2.07m/sec Updated by Caitlyn Platt on 08/08/2016 10:51:42 AM electronically signed on 08/08/2016 10:53:19 AM with status of Final Wall Motion Szymanski: 1=Normal, 2=Hypokinesis, 3=Akinesis, 4=Dyskinesis, 5=Aneurysmal, 6=Hyperkinetic, X=Not Visualized (Blank)=Missing
[2016-08-08 11:28] LABS: Acinetobacter baumannii by PCR Not Detected (Not Detect); Enterococcus by PCR Not Detected (Not Detect); Escherichia coli by PCR Not Detected (Not Detect); Klebsiella oxytoca by PCR Not Detected (Not Detect); Klebsiella pneumoniae by PCR Not Detected (Not Detect); Staphylococcus aureus by PCR Not Detected (Not Detect); Streptococcus agalactiae(B)PCR Not Detected (Not Detect); Streptococcus by PCR ***DETECTED*** (Not Detect); Streptococcus pneumoniae PCR Not Detected (Not Detect); Streptococcus pyogenes (A) PCR Not Detected (Not Detect)
[2016-08-08 11:29] LABS: Candida albicans by PCR Not Detected (Not Detect); Candida glabrata by PCR Not Detected (Not Detect); Candida krusei by PCR Not Detected (Not Detect); Candida parapsilosis by PCR Not Detected (Not Detect); Candida tropicalis by PCR Not Detected (Not Detect); Pseudomonas aeruginosa by PCR Not Detected (Not Detect); Serratia marcescens by PCR Not Detected (Not Detect)
[2016-08-08] MEDS: *HR* LORazepam 2 MG/ML VIAL IVP SCH ×3 (12:00→22:17)
[2016-08-08] MEDS: D5% in Lactated Ringers 1,000 ML IVC SCH ×2 (12:09→22:14)
[2016-08-09] MEDS: *HR* LORazepam 2 MG/ML VIAL IVP SCH ×3 (02:26→08:28)
[2016-08-09 04:00] LABS: BUN/Creatinine Ratio 7 (6-26); Calcium 7.9 mg/dL (8.6-10.8); Carbon Dioxide 30 mEq/L (19-29); Chloride 107 mEq/L (98-109); Creatine Kinase 1123 Units/L (30-200); Glucose 94 mg/dL (70-99); Osmolality,Calculated 291 (280-300); Potassium 3.7 mEq/L (3.5-4.5); Sodium 142 mEq/L (136-145); eGFR For African Americans > 60 (> 60); eGFR For Non-African Americans > 60 (> 60)
[2016-08-09 04:05] LABS: Blood Urea Nitrogen 6 mg/dL (8-26)
--- NOTE | 2016-08-09 09:43 | Pulmonology Progress Note ---
Date of Encounter: 08/09/16 Time of Encounter: 09:41 Assessment and Plan (1) Acute respiratory failure Current Visit: Yes Status: Acute Intubated for airway protection due to severe encephalopathy on 08/07/2016. Vast improvement in mental status and extubated on 08/08/2016. Respiration status is stable on room air. Qualifiers: Respiratory failure complication: unspecified whether with hypoxia or hypercapnia Qualified Code(s): J96.00 - Acute respiratory failure, unspecified whether with hypoxia or hypercapnia (2) Encephalopathy Current Visit: Yes Status: Acute Suspect this was toxic and etiology and related to his polysubstance abuse and overdose. Appears significantly improved. There was initial concern for anoxic encephalopathy, however this seems less likely in light of his significant improvement. No current need for neuro consultation, EEG, or MRI. We will continue to limit sedating medications. (3) Acute renal failure Current Visit: Yes Status: Acute Possibly related to rhabdo or hypoperfusion related to her gammopathy. He has responded nicely to IV fluid hydration. We will continue to trend Chem-7 and urine output, which are both improving Qualifiers: Acute renal failure type: unspecified Qualified Code(s): N17.9 - Acute kidney failure, unspecified (4) Elevated troponin Current Visit: Yes Status: Acute I suspect this is secondary to cocaine abuse. Troponins peaked as high as 1.85 overnight 08/07/2016. A heparin drip was initiated. I have given him a dose of aspirin. I recommend against beta blockers in light of cocaine use. We can treat tachycardia and hypertension with benzodiazepines. A transthoracic echocardiogram revealed global hypokinesis with an ejection fraction of 30%. Cardiology's been consult for further evaluation. (5) High anion gap metabolic acidosis Current Visit: Yes Status: Acute Due to lactic acidosis, which has resolved. Ingestion seems less likely clinically, but ethylene glycol and methanol levels are pending. Alcohol level and salicylate level unremarkable. (6) Polysubstance abuse Current Visit: Yes Status: Acute Likely overdose led to his encephalopathy and intubation. Tox screen was positive for cocaine, but his clinical presentation was more consistent with an opioid overdose. (7) Bacteremia Current Visit: Yes Status: Acute Strep bacteremia with history of IV drug abuse. He is certainly at risk for tricuspid valve endocarditis. Cardiology and infectious disease have been consulted. No vegetations noted on the transthoracic echocardiogram, but he may need a transesophageal echocardiogram. Subjective Principal diagnosis: acute respiratory failure Interval history: No acute overnight events. Patient was extubated 08/08/2016. Blood cultures are positive for strep species. Patient has low-grade fevers. Patient denies cough or sputum production. He admits to recent IV drug abuse and cocaine use. He denies any known recent soft tissue infections, although he did jh and drained an abscess on his right forearm several weeks ago. Objective PUL Vital signs: Last Vital Signs Temp 98.9 F 08/09/16 08:00 Pulse 91 08/09/16 08:00 Resp 16 08/09/16 08:00 BP 120/77 08/09/16 08:00 Pulse Ox 94 L 08/09/16 08:00 General: no acute distress, awake and appropriately interactive Eyes: nonicteric ENT: MMM Neck: supple, no lymphadenopathy Lungs: Coarse bilateral breath sounds Cardiovascular: regular rate and rhythm Gastrointestinal: normoactive bowel sounds, soft, non-tender, non-distended Integumentary: normal, track johnson and tattoos noted Extremities: no cyanosis, no edema Musculoskeletal: no deformities Neuro: non-focal exam Psych: Withdrawn affect and depressed mood Results - Laboratory Findings CBC and BMP: 08/08/16 03:45 08/09/16 03:35 ABG ABG pH 7.30 pH Units (7.32-7.45) L D 08/07/16 Unknown ABG pCO2 47 mmHg (35-45) H 08/07/16 Unknown ABG pO2 103 mmHg (85-104) 08/07/16 Unknown ABG O2 Saturation 97 % (95-98) 08/07/16 Unknown PT/INR, D-dimer PT 13.0 Seconds (9.4-12.1) H 08/07/16 23:40 Abnormal lab findings: Abnormal lab results WBC 13.3 K/mcL (4.3-11.1) H D 08/08/16 03:45 Hgb 12.8 g/dL (12.9-16.9) L D 08/08/16 03:45 MPV 9.1 fL (9.4-12.4) L 08/08/16 03:45 Band Neutrophils % 10.0 % (0-4) H 08/07/16 13:20 PT 13.0 Seconds (9.4-12.1) H 08/07/16 23:40 APTT 48.4 Seconds (26.0-36.0) H 08/09/16 03:35 ABG pH 7.30 pH Units (7.32-7.45) L D 08/07/16 Unknown ABG pCO2 47 mmHg (35-45) H 08/07/16 Unknown ABG Base Excess -3.5 mEq/L (-2.0 to 3.0) L 08/07/16 Unknown Carbon Dioxide 30 mEq/L (19-29) H 08/09/16 03:35 BUN 6 mg/dL (8-26) L D 08/09/16 03:35 POC Glucose 98 (58-89) H 08/09/16 08:09 Serum Osmolality 307 mOsm/kg (280-300) H 08/07/16 15:50 Calcium 7.9 mg/dL (8.6-10.8) L 08/09/16 03:35 AST 67 Units/L (5-34) H 08/07/16 13:20 ALT 74 Units/L (0-55) H 08/07/16 13:20 Creatine Kinase 1123 Units/L (30-200) H 08/09/16 03:35 Troponin I 1.79 ng/mL (0-0.03) H* 08/08/16 06:00 Serum Total Protein 8.9 g/dL (6.0-8.3) H 08/07/16 13:20 Globulin 4.6 g/dL (2.4-3.5) H 08/07/16 13:20 Albumin/Globulin Ratio 0.9 (1.1-2.2) L 08/07/16 13:20 Urine Clarity Cloudy (Clear) A 08/07/16 13:18 Urine Protein 30 mg/dL (Neg-Trace) H 08/07/16 13:18 Urine Blood Moderate (Negative) H 08/07/16 13:18 Urine Microscopic RBC 15-30 per hpf (0-3) H 08/07/16 13:18 Urine Microscopic WBC 5-15 per hpf (0-3) H 08/07/16 13:18 Ur Squamous Epith Cells Many per lpf (None-Few) H 08/07/16 13:18 Salicylates < 5.0 mg/dL (15-30) L 08/07/16 13:20 Acetaminophen < 1.0 mcg/mL (10-30) L 08/07/16 13:20 Urine Cocaine Screen Positive ng/mL (Cutoff= 300) H 08/07/16 13:18 Streptococcus sp PCR DETECTED (Not Detect) A 08/07/16 13:20 - Clinical Findings Intake & Output: Intake & Output 08/08/16 08/09/16 08/09/16 23:59 07:59 15:59 Intake Total 1860 / 1860 50 / 50 1000 / 1000 Output Total 3100 / 3100 2175 / 2175 Balance -1240 / -1240 -2125 / -2125 1000 / 1000 Consult Discharge Plan - Plan Referrals: NO,PCP [Primary Care Provider] -
--- NOTE | 2016-08-09 09:54 | Cardiology Consult Note ---
Date of Encounter: 08/09/16 Time of Encounter: 09:30 Assessment and Plan (1) Systolic dysfunction Current Visit: Yes Status: Acute Presented with suspected polysubstance OD including cocaine. TTE: EF 30% with severe global reduction in LV systolic function, RV normal with severe reduction in function, mild MR/TR/TN. Cardiomyopathy likely secondary to cocaine use. No further inpatient testing recommend from Cardiology standpoint. He appears euvolemic upon exam, no CHF symptoms reported. Long discussion today regarding plan and likely etiology of CHF. Ideally, he should be on medical therapy including betablocker, however is contraindicated with cocaine abuse. Recommend starting low dose ACEi by discharge if kidney function continues to improve (TRISTA upon presentation). Recommend close outpatient follow-up with [facility] to re-assess LVEF in 3 months. (2) Elevated troponin Current Visit: Yes Status: Acute Peak troponin 1.85 with downward trend in the setting of cocaine abuse, OD, and TRISTA/rhabdomyolyisis. Likely demand ischemia. Cardiac rehab is not warranted. Okay to d/c Heparin gtt from Cardiology standpoint. No betablocker d/t cocaine abuse. Discussion w patient/family: The assessment and plan as outlined above was discussed with the patient and/or family members who expressed understanding and agreement. All questions were answered. Thank you for involving us in the care of your patient. Please call with any questions. The patient will be discussed and reviewed with Dr. Shawn Pedro; changes to be made accordingly. History of Present Illness Consult date: 08/09/16 Requesting physician: Sebastian Dougherty Consult reason: EF 30% Chief complaint: OD History of present illness: Mr. Covington is a 31 year old male with PMH significant for drug abuse (including cocaine, heroine, benzodiazepines) and tobacco use who presented to the ED with altered mental status in the setting of OD. He was found to have acute encephalopathy and respiratory distress that required intubation. He was extubated on 08/09/16; encephalopathy has resolved. Upon exam, he is alert and oriented x3. Cardiology consulted today for suspected new systolic CHF. Denies family hx of CAD or SCD. Past Med Surg Social Fam HX - Past Medical History Attestation: Yes The following information was validated with the patient. Source: patient Medical history: no medical history, non-contributory Psychiatric history: anxiety, depression - Social History Smoking Status: Current every day smoker Packs per day: 0.5 Smokeless Tobacco Status: No Alcohol use: occasionally Drug use: cocaine, opiates, marijuana, IVDU, prescription drug abuse, other - Family History Paternal Grandfather Age at : 79 Cause of : liver failure Hx Family GI Disorders: Yes (multiple family members with alpha 1 antitryptin c) Medications and Allergies No Known Home Drugs 08/07/16 [History] Allergies No Known Allergies Allergy (Verified 07/22/15 09:44) All Systems Review: A 10-system review of systems was performed and is negative for pertinent findings except as documented above in the HPI. - Cardiovascular Cardiovascular: as per HPI Physical Examination Vital Signs, Last 4 Hours Temp Pulse Resp BP Pulse Ox 08/09/16 08:00 98.9 F 91 16 120/77 94 L 08/09/16 07:45 98.9 F 08/09/16 07:00 91 14 119/69 95 08/09/16 06:00 79 14 111/62 95 General: Conversant, No Apparent Distress HEENT: Atraumatic, Normocephaly, Mucus Membranes Moist Cardiac: Reg Rate and Rhythm, Normal S1 and S2 Lungs: Normal Breath Sounds Neuro: Alert and responsive Abdomen: Soft Skin: No rashes noted on visualized skin Musculoskeletal: No Chest Wall Tenderness Extremities: No Edema, Normal Pulses Results 08/08/16 03:45 08/09/16 03:35 Lab Results 08/08/16 08/09/16 08/09/16 12:30 03:35 03:35 APTT 66.3 H 48.4 H Sodium 142 Potassium 3.7 Chloride 107 Carbon Dioxide 30 H BUN 6 L D Creatinine 0.91 Glucose 94 Calcium 7.9 L Active Medications Ceftriaxone Sodium 2,000 mg/ (Dextrose) 100 mls @ 200 mls/hr IVPB Q24H GARY Stop: 02/08/17 08:01 Last Infusion: 08/09/16 09:00 Dose: Infused Lorazepam (Ativan) 1 mg IVP Q4HR GARY Stop: 02/07/17 12:01 Last Admin: 08/09/16 08:28 Dose: Not Given Naloxone HCl (Narcan) 0.4 mg IVP Q2MIN PRN PRN Reason: Opioid Reversal Stop: 02/06/17 14:19 - Imaging and Cardiology Echo: report reviewed Other Results: 12 hour tele: avg hr=83 SR. - EKG Interpretation EKG results cardiology: personally reviewed Consult Discharge Plan - Plan Referrals: NO,PCP [Primary Care Provider] -
[2016-08-09] MEDS ORDERED: Naloxone 0.4 MG/ML INJ IVP PRN (10:52)
[2016-08-09] MEDS ORDERED: *HR* LORazepam 2 MG/ML VIAL IVP PRN (10:58)
[2016-08-09] MEDS ORDERED: *HR* LORazepam 2 MG/ML VIAL IVP SCH (12:00)
[2016-08-10 06:25] LABS: BUN/Creatinine Ratio 10 (6-26); Blood Urea Nitrogen 9 mg/dL (8-26); Calcium 8.4 mg/dL (8.6-10.8); Carbon Dioxide 24 mEq/L (19-29); Chloride 108 mEq/L (98-109); Glucose 88 mg/dL (70-99); Osmolality,Calculated 290 (280-300); Potassium 3.6 mEq/L (3.5-4.5); Sodium 141 mEq/L (136-145); eGFR For African Americans > 60 (> 60); eGFR For Non-African Americans > 60 (> 60)
[2016-08-10] MEDS ORDERED: Acetaminophen 325 MG TABLET PO PRN (09:52)
--- NOTE | 2016-08-10 10:16 | Electrocardiograph Report ---
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
--- NOTE | 2016-08-10 15:14 | Infectious Disease Consult ---
Date of Encounter: 08/10/16 Time of Encounter: 15:12 Assessment and Plan (1) Sepsis Status: Acute Assessment and plan: On admission, the patient had three SIRS criteria plus TRISTA and encephalopathy. Likely secondary to bacteremia. Improved. WBC trending down and bandemia has resolved. Tachycardia resolved. Blood cultures drawn 08/07/16 are positive 1/2 sets for GPC. PCR picked up Strep species. Await final ID and sensitivities. Repeat blood culture drawn 08/10/16 x 1 set is pending. Repeat blood cultures x 2 sets in the AM. Qualifiers: Sepsis type: Streptococcus, other Qualified Code(s): A40.8 - Other streptococcal sepsis (2) Bacteremia Status: Acute Assessment and plan: Causative organism Strep species. Blood cultures drawn 08/07/16 are positive 1/2 sets for GPC. PCR picked up Strep species. Final ID and sensitivities are pending. Repeat blood culture drawn x 1 set this morning is pending. Repeat blood cultures x 2 sets in the AM. Source likely IV drug injection site. No evidence of skin or soft tissue infection noted at this time. No endocarditis stigmata noted on exam. TTE showed EF of 30%. No valvular vegetations noted. May need to consider SUNNY prior to discharge. The patient has two minor Modified James's Criteria. Continue Rocephin 2 grams IV Q12H. Await repeat cultures. Duration of treatment depends on the clinical picture. (3) Acute kidney injury Status: Resolved Assessment and plan: Likely multifactorial --> rhabdo + sepsis + IVDU. Resolved. (4) Elevated troponin Status: Acute Assessment and plan: Troponin peaked at 1.79. Cardiology consulted --> likely demand ischemia secondary to cocaine abuse. (5) Rhabdomyolysis Status: Suspected Assessment and plan: Last CK level checked 08/09/16 was 1123. Repeat levels in the AM. Qualifiers: Rhabdomyolysis type: non-traumatic Qualified Code(s): M62.82 - Rhabdomyolysis (6) Acute respiratory failure Status: Resolved Assessment and plan: Secondary to cocaine overdose. Required intubation and mechanical ventilation. Extubated 08/08/16. Resolved. Qualifiers: Respiratory failure complication: unspecified whether with hypoxia or hypercapnia Qualified Code(s): J96.00 - Acute respiratory failure, unspecified whether with hypoxia or hypercapnia (7) Encephalopathy Status: Acute Assessment and plan: Secondary to sepsis + drug overdose. Resolved. (8) Systolic dysfunction Status: Resolved (9) Cocaine overdose Status: Acute Assessment and plan: Reports "recreational" IV cocaine use 2 times per week. Check hepatitis profile and HIV. Qualifiers: Encounter type: subsequent encounter Injury intent: undetermined intent Qualified Code(s): T40.5X4D - Poisoning by cocaine, undetermined, subsequent encounter (10) Polysubstance abuse Status: Acute Assessment and plan: Based on the patient's initial presentation, concern for the ingestion of additional substances other than cocaine. Ethylene glycol and methanol levels pending. Infectious Disease HPI - Data of Consult Patient: new to practice Consult date: 08/10/16 Requesting Physician: Yasemin Jamison Primary Care Provider: PCP NO - Consult Narrative Reason for consult: Strep bacteremia History of present illness: Mr. Covington is a 31 year old male with no known past medical history. He was admitted to the hospital August 07 for respiratory acidosis and acute kidney injury secondary to drug overdose. We are consulted August 10, 2016 for further evaluation and treatment recommendations regarding strep bacteremia. Patient's a 31-year-old male with no past medical history. He presented to the emergency department with altered mental status on the day of admission requiring intubation and mechanical ventilation. He was admitted to the intensive care unit. Laboratory studies the day of admission revealed a leukocytosis. The patient also had low-grade fevers and tachycardia. His mental status improved and he was extubated the following day. Blood cultures obtained in the ER +1 out of 2 sets for strep species. Final ID and sensitivities are pending. His leukocytosis has improved. He has been afebrile for more than 24 hours. He is currently on IV Rocephin. We've been asked to evaluate and make further recommendations. During my exam today, the patient endorses a history as stated above. He reports he overdosed on cocaine. He reports that he typically uses cocaine "recreationally" and uses 2 times a week. He denies any other drug use. He states that prior to this episode he had not been sick. He denies any known fevers or chills or rigors. He denied any headache or neck pain. He denies any chest pain, shortness of breath, or cough. He denied any nausea, vomiting, diarrhea, or constipation. He denied any pain in his back or extremities. He states that he was in his usual state of health. He denied any urinary complaints. He denied any oral thrush or skin lesions or breaks in the skin. Pleat 10 point review of systems was done and was negative except as mentioned as above. CC: Yasemin Jamison Past Med Surg Social Fam HX - Past Medical History Attestation: Yes The following information was validated with the patient. Source: patient, old records reviewed, nursing notes reviewed Medical history: no medical history, non-contributory Psychiatric history: anxiety, depression - Past Surgical History Surgical History: orthopedic, other (Right shoulder surgery) - Social History Smoking Status: Current every day smoker Packs per day: 0.5 Smokeless Tobacco Status: No Alcohol use: occasionally Drug use: cocaine, opiates, marijuana, IVDU, prescription drug abuse, other Occupational status: unemployed Current living situation: Home - Independent Activity Level: Independent ambulation Recent Out of Country Travel Within the Last 8 Weeks: No Exposure or Possible Exposure to Illness During Travel: No - Family History Paternal Grandfather Age at : 79 Cause of : liver failure Hx Family GI Disorders: Yes (multiple family members with alpha 1 antitryptin c) Infectious Disease-CN:Meds No Known Home Drugs 08/07/16 [History] Allergies No Known Allergies Allergy (Verified 07/22/15 09:44) All systems: reviewed and no additional remarkable complaints except as stated Exam - Constitutional Vitals: Temp Pulse Resp BP Pulse Ox 98.3 F 80 16 124/65 95 08/10/16 10:00 08/10/16 10:00 08/10/16 10:00 08/10/16 10:00 08/10/16 10:00 General appearance: average body habitus, cooperative, no acute distress - Head Head exam: Present: atraumatic, normal inspection, normocephalic - Eye Eye exam: Present: EOMI, normal appearance, PERRL Pupils: Present: normal accommodation Additional comments: No subconjunctival hemorrhage noted. - ENT ENT exam: Present: mucous membranes moist - Neck Neck exam: Present: normal inspection - Respiratory Respiratory exam: Present: CTAB. Absent: rales, respiratory distress, rhonchi, wheezes - Cardiovascular Cardiovascular exam: Present: RRR, +S1, +S2 - GI/Abdominal GI/Abdominal exam: Present: normal bowel sounds, soft. Absent: distended, tenderness - Extremities Exam Extremities exam: Present: normal inspection. Absent: joint swelling, pedal edema, tenderness Additional comments: No endocarditis stigmata noted. - Back Exam Back exam: Present: normal inspection. Absent: paraspinal tenderness, vertebral tenderness - Neurological Exam Neurological exam: Present: alert, oriented X3, no focal deficits - Psychiatric Psychiatric exam: Present: normal affect, normal mood - Skin Skin exam: Present: dry, intact, normal color, warm Additional comments: Multiple IV drug injection sites noted to the BUE. Infectious Disease CN: Results - Labs CBC & Chem 7: 08/11/16 03:40 08/11/16 16:13 Cultures: Cultures 08/07/16 14:54 Blood Culture - Preliminary Peripheral Venipuncture No growth. 08/07/16 13:20 Blood Culture - Preliminary Peripheral Venipuncture Gram Positive Cocci Serology: Serology 08/07/16 08/07/16 Range/Units 13:20 13:18 Urine Color Yellow (Yellow) Urine Clarity Cloudy A (Clear) Urine pH 6.0 (5.0-8.0) pH Units Ur Specific Alexis 1.016 (1.010-1.025) Urine Protein 30 H (Neg-Trace) mg/dL Urine Glucose (UA) Normal (Normal) mg/dL Urine Ketones Negative (Negative) mg/dL Urine Blood Moderate H (Negative) Urine Nitrite Negative (Negative) Urine Bilirubin Negative (Negative) Urine Urobilinogen Normal (Normal) mg/dL Ur Leukocyte Esterase Negative (Negative) Urine Microscopic RBC 15-30 H (0-3) per hpf Urine Microscopic WBC 5-15 H (0-3) per hpf Ur Squamous Epith Cells Many H (None-Few) per lpf Urine Bacteria None Seen (None-Few) per hpf Hyaline Casts Few (None-Few) per lpf A. baumannii (PCR) Not Detected (Not Detect) Hansa albicans (PCR) Not Detected (Not Detect) C. glabrata (PCR) Not Detected (Not Detect) C. krusei (PCR) Not Detected (Not Detect) C. parapsilosis (PCR) Not Detected (Not Detect) C. tropicalis (PCR) Not Detected (Not Detect) Enterobacteriac sp PCR Not Detected (Not Detect) E. cloacae complex PCR Not Detected (Not Detect) Enterococcus sp PCR Not Detected (Not Detect) E. coli (PCR) Not Detected (Not Detect) H. influenzae (PCR) Not Detected (Not Detect) Klebsiella oxytoca PCR Not Detected (Not Detect) Klebsiella pneumoniae Not Detected (Not Detect) List. monocytogenes PCR Not Detected (Not Detect) N. meningitidis (PCR) Not Detected (Not Detect) Proteus species (PCR) Not Detected (Not Detect) Serratia marcescens PCR Not Detected (Not Detect) Staphylococcus sp PCR Not Detected (Not Detect) Staph aureus (PCR) Not Detected (Not Detect) mecA-Methicil Res Gene N/A (Not Detect) Streptococcus sp PCR DETECTED A (Not Detect) Group A Strep DNA Not Detected (Not Detect) Group B Strep (PCR) Not Detected (Not Detect) Strep pneumoniae (PCR) Not Detected (Not Detect) P. aeruginosa (PCR) Not Detected (Not Detect) Chavo/B-Vanco Res Genes N/A (Not Detect) KPC (blaKPC) Detect PCR N/A (Not Detect) Consult Discharge Plan - Plan Referrals: Donna Oliveros MD [Partnered Physician] - Dinesh Garcia DO [Partnered Physician] - 08/26/16 1:30 pm
[2016-08-10] MEDS: Nicotine 14 MG PATCH.TD24 TD SCH (17:36)
--- NOTE | 2016-08-10 17:56 | Internal Med Progress Note ---
Date of Encounter: 08/10/16 Time of Encounter: 11:45 - Assessment and plan (1) Encephalopathy Current Visit: Yes Status: Acute Assessment and plan: resolved. Metabolic encephalopathy secondary to polysubstance abuse. 31-year- old male with a history of substance abuse including cocaine, opiates, prescription drugs, and marijuana presented to the ER with changes in his mental status and inability to protect his airway and was intubated. Urine drug screen positive for cocaine. (2) Acute respiratory failure Current Visit: Yes Status: Resolved Assessment and plan: resolved. Intubated for airway protection due to severe encephalopathy on 2016. Successfully extubated on 08/08/2016. Qualifiers: Respiratory failure complication: unspecified whether with hypoxia or hypercapnia Qualified Code(s): J96.00 - Acute respiratory failure, unspecified whether with hypoxia or hypercapnia (3) Acute renal failure Current Visit: Yes Status: Acute Assessment and plan: resolved. Secondary to hypoperfusion from encephalopathy and drug overdose. Received IV fluids. Qualifiers: Acute renal failure type: unspecified Qualified Code(s): N17.9 - Acute kidney failure, unspecified (4) Bacteremia Current Visit: Yes Status: Acute Assessment and plan: GPC bacteremia. 08/07: 1/2 blood cultures positive for GPC and PCR positive for Streptococcus. 08/10: blood cultures pending. Echocardiogram revealed severe global reduction in LV systolic function, LVEF 30 %, RV normal in size with severe reduction in function, mild pulmonic regurgitation. Continue IV ceftriaxone. Id team is following. pending final results of blood cultures and repeat cultures. (5) Cardiomyopathy Current Visit: Yes Status: Acute Assessment and plan: Secondary to cocaine use. Echocardiogram revealed severe global reduction in LV systolic function, LVEF 30 %, RV normal in size with severe reduction in function, mild pulmonic regurgitation. Appreciate cardiology input. No signs of acute decompensation. Will attempt to start lisinopril tomorrow if kidney function stable. Patient of candidate for beta yanira due to cocaine use. Qualifiers: Cardiomyopathy type: due to drug Qualified Code(s): I42.7 - Cardiomyopathy due to drug and external agent (6) Cocaine overdose Current Visit: Yes Status: Acute Assessment and plan: Patient counseled to quit drugs. He understood but never answer if he will attempt to quit. Qualifiers: Encounter type: subsequent encounter Injury intent: undetermined intent Qualified Code(s): T40.5X4D - Poisoning by cocaine, undetermined, subsequent encounter (7) Elevated troponin Current Visit: Yes Status: Acute Assessment and plan: Data troponin secondary to cocaine abuse. (8) High anion gap metabolic acidosis Current Visit: Yes Status: Resolved Assessment and plan: resolved. Due to lactic acidosis. Negative alcohol and salicylate level. (9) Polysubstance abuse Current Visit: Yes Status: Acute Assessment and plan: Plan as above. (10) Systolic heart failure Current Visit: Yes Status: Acute Assessment and plan: LVEF 30% on echo. Secondary to cocaine abuse. Plan as above. Qualifiers: Heart failure chronicity: unspecified heart failure chronicity Qualified Code(s): I50.20 - Unspecified systolic (congestive) heart failure - Subjective Interval history: Patient complaints of pain all over, including his right leg and left arm. - Constitutional Vitals: Temp Pulse Resp BP Pulse Ox 97.8 F 64 16 127/76 95 08/10/16 15:05 08/10/16 15:05 08/10/16 15:05 08/10/16 15:05 08/10/16 15:05 General appearance: Present: cooperative, A&O X 3, pleasant, no acute distress, answers questions appropriately - Eye Eye exam: Present: PERRL, sclera anicteric - Neck Neck exam general surgery: Present: supple, trachea midline. Absent: lymphadenopathy - Respiratory Respiratory exam: Present: CTAB - GI/Abdominal GI/Abdominal exam: Present: normal bowel sounds, soft. Absent: distended, tenderness - Extremities Exam Extremities exam: Absent: pedal edema - Back Exam Back exam: Absent: CVA tenderness (L), CVA tenderness (R) - Neurological Exam Neurological exam: Present: alert, oriented X3, no focal deficits, strengths equal and symetr throughout. Absent: facial droop, speech deficit Internal Medicine: Result - Labs CBC & Chem 7: 08/08/16 03:45 08/10/16 05:22 Labs: BMP 08/10/16 05:22 Sodium 141 Potassium 3.6 Chloride 108 Carbon Dioxide 24 BUN 9 Creatinine 0.89 Glucose 88 Calcium 8.4 L - ABG Interpretation ABG results: ABG ABG pH 7.30 pH Units (7.32-7.45) L D 08/07/16 Unknown ABG pCO2 47 mmHg (35-45) H 08/07/16 Unknown ABG pO2 103 mmHg (85-104) 08/07/16 Unknown ABG O2 Saturation 97 % (95-98) 08/07/16 Unknown PT/INR, D-dimer PT 13.0 Seconds (9.4-12.1) H 08/07/16 23:40 Consult Discharge Plan - Plan Referrals: Donna Oliveros MD [Partnered Physician] - Dinesh Garcia DO [Partnered Physician] - 08/26/16 1:30 pm
[2016-08-10 18:45] LABS: Hepatitis A Antibody IgM Nonreactive (Nonreactive); Hepatitis B Core IgM Nonreactive (Nonreactive); Hepatitis B Surface Antigen Nonreactive (Nonreactive)
[2016-08-10 18:47] LABS: Hepatitis C Virus Antibody Reactive (Nonreactive)
[2016-08-10 20:40] LABS: HIV-1&2 Antibody & p24 Ag Nonreactive (Nonreactive)
[2016-08-11] MEDS ORDERED: *HR* Morphine 2 MG/ML SYRINGE IVP PRN (01:47)
[2016-08-11 04:20] LABS: BUN/Creatinine Ratio 12 (6-26); Blood Urea Nitrogen 10 mg/dL (8-26); Calcium 8.6 mg/dL (8.6-10.8); Carbon Dioxide 24 mEq/L (19-29); Chloride 108 mEq/L (98-109); Glucose 82 mg/dL (70-99); Osmolality,Calculated 288 (280-300); Potassium 3.6 mEq/L (3.5-4.5); Sodium 140 mEq/L (136-145); eGFR For African Americans > 60 (> 60); eGFR For Non-African Americans > 60 (> 60)
[2016-08-11 07:11] LABS: Ethylene Glycol <5 mg/dL
[2016-08-11] MEDS: Nicotine 14 MG PATCH.TD24 TD SCH (09:02)
[2016-08-11 09:03] LABS: Basophils % 0.6 %; Eosinophils # 0.1 K/mcL (0.0-0.6); Eosinophils % 1.9 %; Hematocrit 39.5 % (37.5-50.1); Hemoglobin 13.4 g/dL (12.9-16.9); Immature Granulocytes % 0.2 % (0-4); Lymphocytes # 1.9 K/mcL (0.6-4.6); Lymphocytes % 36.5 %; Mean Corpuscular HGB Conc 33.9 g/dL (31.6-35.5); Mean Corpuscular Hemoglobin 29.6 pg (28.0-33.3); Mean Corpuscular Volume 87.2 fL (83.0-100.0); Mean Platelet Volume 10.2 fL (9.4-12.4); Monocytes # 0.5 K/mcL (0.0-1.3); Monocytes % 10.3 %; Neutrophils # 2.6 K/mcL (1.6-8.9); Platelet Count 169 K/mcL (140-400); Red Blood Count 4.53 M/mcL (4.19-5.50); Red Cell Distribution Width 12.2 % (11.5-14.5); Segmented Neutrophils % 50.5 %
--- NOTE | 2016-08-11 10:26 | Internal Med Progress Note ---
<Gamal Monge - Last Filed: 08/11/16 13:22> Date of Encounter: 08/11/16 Time of Encounter: 10:26 - Assessment and plan (1) Encephalopathy Current Visit: Yes Status: Acute Assessment and plan: Resolved. Metabolic encephalopathy secondary to polysubstance abuse. 31-year-old male with a history of substance abuse including cocaine, opiates, prescription drugs, and marijuana presented to the ER with changes in his mental status and inability to protect his airway and was intubated. Urine drug screen positive for cocaine. (2) Acute respiratory failure Current Visit: Yes Status: Resolved Assessment and plan: Resolved. Intubated for airway protection due to severe encephalopathy on 08/07/2016. Successfully extubated on 08/08/2016. Qualifiers: Respiratory failure complication: unspecified whether with hypoxia or hypercapnia Qualified Code(s): J96.00 - Acute respiratory failure, unspecified whether with hypoxia or hypercapnia (3) Acute renal failure Current Visit: Yes Status: Acute Assessment and plan: Resolved. Cr 0.84 Secondary to hypoperfusion from rhabdomyolysis, sepsis, encephalopathy and drug overdose. Qualifiers: Acute renal failure type: unspecified Qualified Code(s): N17.9 - Acute kidney failure, unspecified (4) Bacteremia Current Visit: Yes Status: Acute Assessment and plan: Gram positive cocci bacteremia. 08/07/16 blood culture grew Streptococcus salivarius, second blood culture no growth to date. 08/10/16 no growth to date. Echocardiogram revealed severe global reduction in LV systolic function, LVEF 30 %, RV normal in size with severe reduction in function, mild pulmonic regurgitation. WBC 5.2. 28.5 on admission. Continue IV Ceftriaxone, may consider switch to IM. Continue per Infectious Disease team recommendations. ID recommends SUNNY before discharge to rule out vegetations in this patient with history of IVDU and recommends 2 week course antibiotics on discharge. SUNNY ordered, to complete tomorrow, NPO after midnight. (5) Cardiomyopathy Current Visit: Yes Status: Acute Assessment and plan: Likely secondary to cocaine use. Echocardiogram revealed severe global reduction in LV systolic function, LVEF 30 %, RV normal in size with severe reduction in function, mild pulmonic regurgitation. No acute exacerbation. Start lisinopril per cardio recommendations. Qualifiers: Cardiomyopathy type: due to drug Qualified Code(s): I42.7 - Cardiomyopathy due to drug and external agent (6) Cocaine overdose Current Visit: Yes Status: Acute Assessment and plan: Patient counseled to quit drugs. Patient understands and is willing to seek treatment at outpatient rehab. Qualifiers: Encounter type: subsequent encounter Injury intent: undetermined intent Qualified Code(s): T40.5X4D - Poisoning by cocaine, undetermined, subsequent encounter (7) Elevated troponin Current Visit: Yes Status: Acute Assessment and plan: Troponin elevation secondary to cocaine use. Last troponin 0.29, decreased from admission. (8) High anion gap metabolic acidosis Current Visit: Yes Status: Resolved Assessment and plan: Resolved. Lactic acidosis, negative alcohol and salicylate levels. (9) Polysubstance abuse Current Visit: Yes Status: Acute Assessment and plan: Per plan in assessments above (10) Systolic heart failure Current Visit: Yes Status: Acute Assessment and plan: LVEF 30% on echo. Secondary to cocaine abuse. Per plan in assessments above. Qualifiers: Heart failure chronicity: unspecified heart failure chronicity Qualified Code(s): I50.20 - Unspecified systolic (congestive) heart failure - Subjective Interval history: Patient reports that overnight he developed some chest pain that felt like heartburn. Patient was given morphine, ekg performed, and troponin at that time was Troponin at that time was 0.37 which was decreased from 1.85 on admission. Patient reports occassional lightheadedness when sitting up. Denies fevers, chills, sweats, headaches, changes in vision or hearing, nausea, vomiting, shortness of breath, abdominal pain, changes in bowels or bladder, weakness, or loss of sensation. - Constitutional Vitals: Temp Pulse Resp BP Pulse Ox 98.1 F 59 14 123/74 95 08/11/16 07:59 08/11/16 07:59 08/11/16 07:59 08/11/16 07:59 08/11/16 07:59 General appearance: Present: cooperative, A&O X 3, pleasant, no acute distress, answers questions appropriately - Head Head exam: Present: atraumatic, normal inspection, normocephalic - Eye Eye exam: Present: EOMI, normal appearance, PERRL - ENT ENT exam: Present: mucous membranes moist, normal exam, normal external ear exam , normal oropharynx Additional comments: abrasion noted right lip comissure. - Neck Neck exam general surgery: Present: full ROM, normal inspection, supple, trachea midline. Absent: lymphadenopathy, tenderness - Respiratory Respiratory exam: Present: CTAB. Absent: rales, rhonchi, wheezes - Cardiovascular Cardiovascular exam: Present: RRR, +S1, +S2. Absent: diastolic murmur, JVD, systolic murmur - GI/Abdominal GI/Abdominal exam: Present: normal bowel sounds, soft. Absent: distended, guarding, tenderness - Extremities Exam Extremities exam: Present: full ROM, normal inspection, warm. Absent: pedal edema, tenderness - Back Exam Back exam: Present: normal inspection. Absent: rash noted, tenderness - Neurological Exam Neurological exam: Present: alert, oriented X3, strengths equal and symetr throughout. Absent: facial droop, speech deficit - Psychiatric Psychiatric exam: Present: normal affect, normal mood - Skin Skin exam: Present: dry, intact, normal color, warm. Absent: diaphoretic, erythema, pallor Internal Medicine: Result - Labs CBC & Chem 7: 08/11/16 03:40 08/11/16 03:42 Labs: Short CBC 08/11/16 Range/Units 03:40 WBC 5.2 D (4.3-11.1) K/mcL Hgb 13.4 (12.9-16.9) g/dL Hct 39.5 (37.5-50.1) % Plt Count 169 (140-400) K/mcL Neutrophils # 2.6 (1.6-8.9) K/mcL BMP 08/11/16 03:42 Sodium 140 Potassium 3.6 Chloride 108 Carbon Dioxide 24 BUN 10 Creatinine 0.84 Glucose 82 Calcium 8.6 Cardiac Enzymes 08/11/16 08/11/16 Range/Units 03:42 09:43 Troponin I 0.37 H* 0.29 H* (0-0.03) ng/mL - ABG Interpretation ABG results: ABG ABG pH 7.30 pH Units (7.32-7.45) L D 08/07/16 Unknown ABG pCO2 47 mmHg (35-45) H 08/07/16 Unknown ABG pO2 103 mmHg (85-104) 08/07/16 Unknown ABG O2 Saturation 97 % (95-98) 08/07/16 Unknown PT/INR, D-dimer PT 13.0 Seconds (9.4-12.1) H 08/07/16 23:40 Consult Discharge Plan - Plan Referrals: Donna Oliveros MD [Partnered Physician] - Dinesh Garcia DO [Partnered Physician] - 08/26/16 1:30 pm <[email or web address] Sue - Last Filed: 08/11/16 19:09> - Assessment and plan (1) Encephalopathy Current Visit: Yes Status: Acute (2) Acute respiratory failure Current Visit: Yes Status: Resolved Qualifiers: Respiratory failure complication: unspecified whether with hypoxia or hypercapnia Qualified Code(s): J96.00 - Acute respiratory failure, unspecified whether with hypoxia or hypercapnia (3) Acute renal failure Current Visit: Yes Status: Acute Qualifiers: Acute renal failure type: unspecified Qualified Code(s): N17.9 - Acute kidney failure, unspecified (4) Bacteremia Current Visit: Yes Status: Acute (5) Cardiomyopathy Current Visit: Yes Status: Acute Qualifiers: Cardiomyopathy type: due to drug Qualified Code(s): I42.7 - Cardiomyopathy due to drug and external agent (6) Cocaine overdose Current Visit: Yes Status: Acute Qualifiers: Encounter type: subsequent encounter Injury intent: undetermined intent Qualified Code(s): T40.5X4D - Poisoning by cocaine, undetermined, subsequent encounter (7) Elevated troponin Current Visit: Yes Status: Acute (8) High anion gap metabolic acidosis Current Visit: Yes Status: Resolved (9) Polysubstance abuse Current Visit: Yes Status: Acute (10) Systolic heart failure Current Visit: Yes Status: Acute Qualifiers: Heart failure chronicity: unspecified heart failure chronicity Qualified Code(s): I50.20 - Unspecified systolic (congestive) heart failure - Constitutional Vitals: Temp Pulse Resp BP Pulse Ox 98.3 F 59 14 129/82 95 08/11/16 16:51 08/11/16 16:51 08/11/16 16:51 08/11/16 16:51 08/11/16 16:51 Internal Medicine: Result - Labs CBC & Chem 7: 08/11/16 03:40 08/11/16 16:13 Labs: Short CBC 08/11/16 Range/Units 03:40 WBC 5.2 D (4.3-11.1) K/mcL Hgb 13.4 (12.9-16.9) g/dL Hct 39.5 (37.5-50.1) % Plt Count 169 (140-400) K/mcL Neutrophils # 2.6 (1.6-8.9) K/mcL BMP 08/11/16 08/11/16 03:42 16:13 Sodium 140 139 Potassium 3.6 3.8 Chloride 108 107 Carbon Dioxide 24 24 BUN 10 11 Creatinine 0.84 0.82 Glucose 82 99 Calcium 8.6 9.0 Cardiac Enzymes 08/11/16 08/11/16 Range/Units 03:42 09:43 Troponin I 0.37 H* 0.29 H* (0-0.03) ng/mL - ABG Interpretation ABG results: ABG ABG pH 7.30 pH Units (7.32-7.45) L D 08/07/16 Unknown ABG pCO2 47 mmHg (35-45) H 08/07/16 Unknown ABG pO2 103 mmHg (85-104) 08/07/16 Unknown ABG O2 Saturation 97 % (95-98) 08/07/16 Unknown PT/INR, D-dimer PT 13.0 Seconds (9.4-12.1) H 08/07/16 23:40 - Attending Attestation I examined this patient and reviewed laboratory, imaging and all diagnostic data. My medical decision-making was reviewed with Dr Monge - Resident Physician. I agree with the documented findings, disposition and treatment plan as described above.
--- NOTE | 2016-08-11 10:36 | Discharge Summary ---
Date of Encounter: 08/11/16 Time of Encounter: 10:34 - Discharge Diagnosis (1) Encephalopathy Status: Acute (2) Acute respiratory failure Status: Resolved Qualifiers: Respiratory failure complication: unspecified whether with hypoxia or hypercapnia Qualified Code(s): J96.00 - Acute respiratory failure, unspecified whether with hypoxia or hypercapnia (3) Acute renal failure Status: Acute Qualifiers: Acute renal failure type: unspecified Qualified Code(s): N17.9 - Acute kidney failure, unspecified (4) Bacteremia Status: Acute (5) Cardiomyopathy Status: Acute Qualifiers: Cardiomyopathy type: due to drug Qualified Code(s): I42.7 - Cardiomyopathy due to drug and external agent (6) Systolic heart failure Status: Acute Qualifiers: Heart failure chronicity: unspecified heart failure chronicity Qualified Code(s): I50.20 - Unspecified systolic (congestive) heart failure (7) Cocaine overdose Status: Acute Qualifiers: Encounter type: subsequent encounter Injury intent: undetermined intent Qualified Code(s): T40.5X4D - Poisoning by cocaine, undetermined, subsequent encounter (8) Elevated troponin Status: Acute (9) Polysubstance abuse Status: Acute (10) High anion gap metabolic acidosis Status: Resolved - Discharge Medications Home Medications: No Known Home Drugs 08/07/16 [History] Allergies/Adverse Reactions: Allergies No Known Allergies Allergy (Verified 07/22/15 09:44) Procedures/tests Complete & Pending: Procedures Performed prior 72 hours Category Date Time Status ECG 12 lead ECG [ECG] Stat Y 08/11/16 01:39 Stop Req ECG 12 lead ECG [ECG] Stat Y 08/11/16 01:41 Stop Req ECG 12 lead ECG [ECG] Stat Y 08/11/16 02:00 Ordered Date of admission: 08/08/16 12:15 Primary care physician: PCP NO Consults: 08/08/16 12:51 Consult to Cardiology [CONS] Routine Comment: Consulting Provider: Card[facility] [place] Reason for Consult: elevated troponin, new cardiomyopathy, cocaine abuse Call Completed: No 08/09/16 09:53 Consult to Infectious Diseases [CONS] Routine Consulting Provider: Infectious Disease [place] Reason for Consult: Bacteremia, IV drug abuse Call Completed: No 08/10/16 09:35 Consult to [facility]unghole [facility] [CONS] Routine Reason for SW Consult: resources for outpatient rehab Discharging clinician: Yasemin Jamison (Gamal Monge) Anticipated date of discharge: 08/11/16 - Patient Status Condition: Critical - Discharge Instructions Follow Up With: Donna Oliveros MD [Partnered Physician] - Dinesh Garcia DO [Partnered Physician] - 08/26/16 1:30 pm Interval History: Patient reports that overnight he developed some chest pain that felt like heartburn. Patient was given morphine, ekg performed, and troponin at that time was Troponin at that time was 0.37 which was decreased from 1.85 on admission. Patient reports occassional lightheadedness when sitting up. Denies fevers, chills, sweats, headaches, changes in vision or hearing, nausea, vomiting, shortness of breath, abdominal pain, changes in bowels or bladder, weakness, or loss of sensation. Hospital course: Mr. Covington is a 31 year old male - Time Spent with Patient Total time spent providing and/or coordinating discharge services: - Constitutional Vitals: Temp Pulse Resp BP Pulse Ox 98.1 F 59 14 123/74 95 08/11/16 07:59 08/11/16 07:59 08/11/16 07:59 08/11/16 07:59 08/11/16 07:59 General appearance: Present: cooperative, A&O X 3, pleasant, no acute distress, answers questions appropriately
[2016-08-11] MEDS ORDERED: Mag Hydrox/Al Hydrox/Simeth 30 ML UDC PO PRN (13:10)
--- NOTE | 2016-08-11 13:56 | Infectious Disease Progress No ---
Date of Encounter: 08/11/16 Time of Encounter: 13:53 - Assessment and Plan (1) Sepsis Current Visit: Yes Status: Acute On admission, the patient had three SIRS criteria plus TRISTA and encephalopathy. Likely secondary to bacteremia. Improved. WBC trending down and bandemia has resolved. Tachycardia resolved. Blood cultures drawn 08/07/16 are positive 1/2 sets for GPC. PCR picked up Strep species. Await final ID and sensitivities. Repeat blood culture drawn 08/10/16 x 1 set is NGTD. Repeat blood cultures x 2 sets drawn 08/11/16 are pending. Qualifiers: Sepsis type: Streptococcus, other Qualified Code(s): A40.8 - Other streptococcal sepsis (2) Bacteremia Current Visit: Yes Status: Acute Causative organism Strep salivarius. Blood cultures drawn 08/07/16 are positive 1/2 sets for Strep salivarius. Sensitivities are pending. Repeat blood culture drawn x 1 set this 08/10/16 is NGTD. Repeat blood cultures x 2 sets drawn 08/11/16 are pending. Source likely IV drug injection site. No evidence of skin or soft tissue infection noted at this time. No endocarditis stigmata noted on exam. TTE showed EF of 30%. No valvular vegetations noted. Need to have SUNNY prior to discharge. The patient has two minor Modified James's Criteria. Continue Rocephin 2 grams IV Q12H. Await repeat cultures. Duration of treatment depends on the clinical picture and results of SUNNY. (3) Acute kidney injury Current Visit: Yes Status: Resolved Likely multifactorial --> rhabdo + sepsis + IVDU. Resolved. (4) Elevated troponin Current Visit: Yes Status: Acute Troponin peaked at 1.79. Cardiology consulted --> likely demand ischemia secondary to cocaine abuse. (5) Rhabdomyolysis Current Visit: Yes Status: Suspected Last CK level checked 08/09/16 was 1123. Repeat levels in the AM. Qualifiers: Rhabdomyolysis type: non-traumatic Qualified Code(s): M62.82 - Rhabdomyolysis (6) Acute respiratory failure Current Visit: Yes Status: Resolved Secondary to cocaine overdose. Required intubation and mechanical ventilation. Extubated 08/08/16. Resolved. Qualifiers: Respiratory failure complication: unspecified whether with hypoxia or hypercapnia Qualified Code(s): J96.00 - Acute respiratory failure, unspecified whether with hypoxia or hypercapnia (7) Encephalopathy Current Visit: Yes Status: Acute Secondary to sepsis + drug overdose. Resolved. (8) Systolic dysfunction Current Visit: Yes Status: Resolved (9) Cocaine overdose Current Visit: Yes Status: Acute Reports "recreational" IV cocaine use 2 times per week. HIV non-reactive. Hep C antibody positive. Qualifiers: Encounter type: subsequent encounter Injury intent: undetermined intent Qualified Code(s): T40.5X4D - Poisoning by cocaine, undetermined, subsequent encounter (10) Polysubstance abuse Current Visit: Yes Status: Acute Based on the patient's initial presentation, concern for the ingestion of additional substances other than cocaine. Ethylene glycol and methanol levels pending. - Subjective Interval history: Patient seen and examined. No acute events noted overnight. Patient states that overall he feels well. He denies any fevers or chills or rigors. He denies chest pain, shortness breath, or cough. He denies nausea, vomiting, diarrhea, constipation. He reports that his last bowel movement was prior to admission. He does report some mild heartburn after lunch. He denies abdominal pain and states his appetite is good. He denies any oral thrush or skin lesions. Infect Dis PN-Objective Data - Labs CBC & Chem 7: 08/11/16 03:40 08/11/16 16:13 Labs: Laboratory Results - last 24 hr 08/10/16 08/10/16 08/10/16 17:15 17:15 20:21 WBC RBC Hgb Hct MCV MCH MCHC RDW Plt Count MPV Immature Gran % Seg Neutrophils % Lymphocytes % Monocytes % Eosinophils % Basophils % Neutrophils # Lymphocytes # Monocytes # Eosinophils # Basophils # Sodium Potassium Chloride Carbon Dioxide BUN Creatinine Est GFR ( Amer) Est GFR (Non-Af Amer) BUN/Creatinine Ratio Glucose POC Glucose 119 H 110 H Calculated Osmolality Calcium Magnesium Troponin I Hepatitis A IgM Ab Nonreactive Hep Bs Antigen Nonreactive Hep B Core IgM Ab Nonreactive Hepatitis C Ab Screen Reactive H HIV Ag/Ab Combo Qual Nonreactive 08/11/16 08/11/16 08/11/16 03:40 03:42 03:42 WBC 5.2 D RBC 4.53 Hgb 13.4 Hct 39.5 MCV 87.2 MCH 29.6 MCHC 33.9 RDW 12.2 Plt Count 169 MPV 10.2 Immature Gran % 0.2 Seg Neutrophils % 50.5 Lymphocytes % 36.5 Monocytes % 10.3 Eosinophils % 1.9 Basophils % 0.6 Neutrophils # 2.6 Lymphocytes # 1.9 Monocytes # 0.5 Eosinophils # 0.1 Basophils # 0.0 Sodium 140 Potassium 3.6 Chloride 108 Carbon Dioxide 24 BUN 10 Creatinine 0.84 Est GFR ( Amer) > 60 Est GFR (Non-Af Amer) > 60 BUN/Creatinine Ratio 12 Glucose 82 POC Glucose Calculated Osmolality 288 Calcium 8.6 Magnesium 1.9 Troponin I Hepatitis A IgM Ab Hep Bs Antigen Hep B Core IgM Ab Hepatitis C Ab Screen HIV Ag/Ab Combo Qual 08/11/16 08/11/16 08/11/16 03:42 08:05 09:43 WBC RBC Hgb Hct MCV MCH MCHC RDW Plt Count MPV Immature Gran % Seg Neutrophils % Lymphocytes % Monocytes % Eosinophils % Basophils % Neutrophils # Lymphocytes # Monocytes # Eosinophils # Basophils # Sodium Potassium Chloride Carbon Dioxide BUN Creatinine Est GFR ( Amer) Est GFR (Non-Af Amer) BUN/Creatinine Ratio Glucose POC Glucose 86 Calculated Osmolality Calcium Magnesium Troponin I 0.37 H* 0.29 H* Hepatitis A IgM Ab Hep Bs Antigen Hep B Core IgM Ab Hepatitis C Ab Screen HIV Ag/Ab Combo Qual 08/11/16 11:39 WBC RBC Hgb Hct MCV MCH MCHC RDW Plt Count MPV Immature Gran % Seg Neutrophils % Lymphocytes % Monocytes % Eosinophils % Basophils % Neutrophils # Lymphocytes # Monocytes # Eosinophils # Basophils # Sodium Potassium Chloride Carbon Dioxide BUN Creatinine Est GFR ( Amer) Est GFR (Non-Af Amer) BUN/Creatinine Ratio Glucose POC Glucose 91 H Calculated Osmolality Calcium Magnesium Troponin I Hepatitis A IgM Ab Hep Bs Antigen Hep B Core IgM Ab Hepatitis C Ab Screen HIV Ag/Ab Combo Qual Cultures: Cultures 08/10/16 05:22 Blood Culture - Preliminary Peripheral Venipuncture No growth. Serology 08/10/16 Range/Units 17:15 Hepatitis A IgM Ab Nonreactive (Nonreactive) Hep Bs Antigen Nonreactive (Nonreactive) Hep B Core IgM Ab Nonreactive (Nonreactive) Hepatitis C Ab Screen Reactive H (Nonreactive) HIV Ag/Ab Combo Qual Nonreactive (Nonreactive) Exam - Constitutional Vitals: Temp Pulse Resp BP Pulse Ox 98.2 F 63 14 143/91 97 08/11/16 13:00 08/11/16 13:00 08/11/16 13:00 08/11/16 13:00 08/11/16 13:00 General appearance: average body habitus, cooperative, no acute distress - Head Head exam: Present: atraumatic, normal inspection, normocephalic - Eye Eye exam: Present: EOMI, normal appearance, PERRL Pupils: Present: normal accommodation Additional comments: No subconjunctival hemorrhage noted. - ENT ENT exam: Present: mucous membranes moist - Neck Neck exam: Present: normal inspection - Respiratory Respiratory exam: Present: CTAB. Absent: rales, respiratory distress, rhonchi, wheezes - Cardiovascular Cardiovascular exam: Present: RRR, +S1, +S2 - GI/Abdominal GI/Abdominal exam: Present: normal bowel sounds, soft. Absent: distended, tenderness - Extremities Exam Extremities exam: Present: normal inspection. Absent: joint swelling, pedal edema, tenderness Additional comments: No endocarditis stigmata noted. - Neurological Exam Neurological exam: Present: alert, oriented X3, no focal deficits - Psychiatric Psychiatric exam: Present: normal affect, normal mood - Skin Skin exam: Present: dry, intact, normal color, warm Consult Discharge Plan - Plan Referrals: Donna Oliveros MD [Partnered Physician] - Dinesh Garcia DO [Partnered Physician] - 08/26/16 1:30 pm
[2016-08-11 16:45] LABS: BUN/Creatinine Ratio 13 (6-26); Blood Urea Nitrogen 11 mg/dL (8-26); Carbon Dioxide 24 mEq/L (19-29); Chloride 107 mEq/L (98-109); Glucose 99 mg/dL (70-99); Osmolality,Calculated 287 (280-300); Potassium 3.8 mEq/L (3.5-4.5); Sodium 139 mEq/L (136-145); eGFR For African Americans > 60 (> 60); eGFR For Non-African Americans > 60 (> 60)
[2016-08-12] MEDS: Nicotine 14 MG PATCH.TD24 TD SCH (07:15)
--- NOTE | 2016-08-12 09:22 | Discharge Summary ---
Addendum entered and electronically signed by Gamal Monge DO 12:02: Social Work consult reviewed, due to no insurance, unable to get IM Ceftriaxone setup for outpatient. Reviewed throught final blood culture and sensitivity for Strep salivarius. Will start patient on Augmentin 875 tid x 10 days. Original Note: <Gamal Monge - Last Filed: 08/12/16 17:32> Date of Encounter: 08/12/16 Time of Encounter: 09:19 - Discharge Diagnosis (1) Encephalopathy Priority: Primary Status: Resolved Comments: Resolved. Metabolic encephalopathy secondary to polysubstance abuse. 31-year-old male with a history of substance abuse including cocaine, opiates, prescription drugs, and marijuana presented to the ER with changes in his mental status and inability to protect his airway and was intubated. Urine drug screen positive for cocaine. (2) Acute respiratory failure Priority: Primary Status: Resolved Comments: Resolved. Intubated for airway protection due to severe encephalopathy on 08/07/2016. Successfully extubated on 08/08/2016. Qualifiers: Respiratory failure complication: unspecified whether with hypoxia or hypercapnia Qualified Code(s): J96.00 - Acute respiratory failure, unspecified whether with hypoxia or hypercapnia (3) Acute renal failure Priority: Primary Status: Resolved Comments: Resolved. Secondary to hypoperfusion from rhabdomyolysis, sepsis, encephalopathy and drug overdose. Qualifiers: Acute renal failure type: unspecified Qualified Code(s): N17.9 - Acute kidney failure, unspecified (4) Bacteremia Priority: Primary Status: Acute Comments: Gram positive cocci bacteremia. 08/07/16 blood culture grew Streptococcus salivarius, second blood culture no growth to date. 08/10/16 no growth to date. 08/11/16 blood cultures no growth to date. Echocardiogram revealed severe global reduction in LV systolic function, LVEF 30 %, RV normal in size with severe reduction in function, mild pulmonic regurgitation. WBC 5.2 yesterday. 28.5 on admission. SUNNY completed revealed LVEF 55%, normal LV size and function, RV was normal in size and systolic function, no valvular dysfunction, no evidence of infective endocarditis, LV function improved from TTE earlier Continue Rocephin d4 Infectious Disease following. Patient unable to be discharged today despite normal SUNNY due to social concerns , unable to get medication. Discharge order conditional pending social work clearance. (5) Cardiomyopathy Priority: Primary Status: Acute Comments: Likely secondary to cocaine use. Echocardiogram revealed severe global reduction in LV systolic function, LVEF 30 %, RV normal in size with severe reduction in function, mild pulmonic regurgitation. No acute exacerbation. Continue low dose lisinopril per cardio recommendations. Patient to follow up as outpatient. Qualifiers: Cardiomyopathy type: due to drug Qualified Code(s): I42.7 - Cardiomyopathy due to drug and external agent (6) Cocaine overdose Priority: Primary Status: Acute Comments: Patient counseled to quit drugs. Patient understands and is willing to seek treatment at outpatient rehab. Qualifiers: Encounter type: subsequent encounter Injury intent: undetermined intent Qualified Code(s): T40.5X4D - Poisoning by cocaine, undetermined, subsequent encounter (7) Elevated troponin Priority: Primary Status: Acute Comments: Troponin elevation secondary to cocaine use. Last troponin 0.29, decreased from admission. (8) High anion gap metabolic acidosis Priority: Primary Status: Resolved Comments: Resolved. Lactic acidosis, negative alcohol and salicylate levels. (9) Polysubstance abuse Priority: Primary Status: Chronic Comments: Per plan in assessments above (10) Systolic heart failure Priority: Primary Status: Acute Comments: LVEF 30% on echo. Secondary to cocaine abuse. Per plan in assessments above. Qualifiers: Heart failure chronicity: unspecified heart failure chronicity Qualified Code(s): I50.20 - Unspecified systolic (congestive) heart failure - Discharge Medications Prescriptions: CefTRIAXone [Rocephin] 1,000 mg IM DAILY #10 vial Omeprazole [PriLOSEC] 20 mg PO DAILY@0630 #30 capsule. Home Medications: CefTRIAXone [Rocephin] 1,000 mg IM DAILY #10 vial 08/12/16 [Rx] Omeprazole [PriLOSEC] 20 mg PO DAILY@0630 #30 capsule. 08/12/16 [Rx] Allergies/Adverse Reactions: Allergies No Known Allergies Allergy (Verified 07/22/15 09:44) Procedures/tests Complete & Pending: Procedures Performed prior 72 hours Category Date Time Status ECG 12 lead ECG [ECG] Stat Y 08/11/16 01:39 Completed ECG 12 lead ECG [ECG] Stat Y 08/11/16 01:41 Completed ECG 12 lead ECG [ECG] Stat Y 08/11/16 02:00 Completed EV SUNNY transesophageal echo Stat Y 08/11/16 13:19 Ordered Date of admission: 08/08/16 12:15 Primary care physician: PCP NO Consults: 08/08/16 12:51 Consult to Cardiology [CONS] Routine Comment: Consulting Provider: Card[facility] [place] Reason for Consult: elevated troponin, new cardiomyopathy, cocaine abuse Call Completed: No 08/09/16 09:53 Consult to Infectious Diseases [CONS] Routine Consulting Provider: Infectious Disease [place] Reason for Consult: Bacteremia, IV drug abuse Call Completed: No 08/10/16 09:35 Consult to Turnaround Planner [CONS] Routine Reason for SW Consult: resources for outpatient rehab Discharging clinician: Yasemin Jamison (Gamal Monge) Anticipated date of discharge: 08/12/16 - Patient Status Disposition: Home, Self-Care Condition: Good Functional capacity at discharge: independent ambulation Overall status at discharge: patient is progressing back to baseline - Discharge Instructions Follow Up With: Donna Oliveros MD [Partnered Physician] - (OFFICE WILL CALL WITH APPOINTMENT) Dinesh Garcia DO [Partnered Physician] - 08/26/16 1:30 pm - Diet and Activity Activity: increase activity as tolerated Diet: advance to your usual diet Interval History: Patient reports he was unable to sleep very well overnight, no particular reason. Patient denies fevers, chills, sweats, headaches, changes in vision or hearing, nausea, vomiting, chest pain, shortness of breath, abdominal pain, changes in bowels or bladder, weakness, or loss of sensation. Hospital course: Mr. Covington is a 31 year old male with history of IVDU who was brought in to the ED via EMS with altered mental status without improvement following Narcan. Patient was determined to be unable to protect his airway and therefore decision to intubate was made. EKG revealed sinus tachycardia. Labs revealed significant leukocytosis of 28.5. Patient was admitted to the ICU. Patient was determined to have acute respiratory failure in the setting of drug overdose and encephalopathy possibly due to drug overdose vs anoxia. CT head was negative for intracranial abnormalities. Patient was also determined to have acute renal failure with Cr of 2.61, CPK of 426, and anion gap metabolic acidosis with negative alcohol and salicylate levels. Patient was addressively hydrated and labs were trended. Troponins elevated to 1.79 peak by following day. CK was also elevated to 1590. Patient was extubated 08/08/16. Blood cultures throughout hospital stay revealed Strep salivarius, all others were negative to date. Due to sepsis picture and ivdu, infectious disease was consulted and had made recommendations for antibiotics and SUNNY. Echo revealed LVEF 30% with severe global reduction in LV systolic function, RV normal with severe reduction in function, and mild tricuspid/mitral/pulmonic regurg likely secondary to cardiomyopathy due to cocaine use. Kidney function improved back to normal and ACEi was started per senior it security analyst recommendations. Patient had complaints of chest pain sensation like heartburn which was resolved after maalox. Patient underwent SUNNY per infectious disease recommendations to rule out vegetations. Patient to complete antibiotic course and follow up with primary care physician regarding this hospital stay. Patient was counseled throughout this admission regarding his substance abuse and patient is willing to go to rehab after discharge back home with parents. - Time Spent with Patient Total time spent providing and/or coordinating discharge services: Greater than 30 minutes - Constitutional Vitals: Temp Pulse Resp BP Pulse Ox 97.9 F 60 14 127/80 96 08/12/16 07:30 08/12/16 07:30 08/12/16 07:30 08/12/16 07:30 08/12/16 07:30 General appearance: Present: cooperative, A&O X 3, pleasant, no acute distress, answers questions appropriately - Head Head exam: Present: atraumatic, normal inspection, normocephalic - Eye Eye exam: Present: EOMI, normal appearance, PERRL - ENT ENT exam: Present: mucous membranes moist, normal exam, normal external ear exam , normal oropharynx Additional comments: abrasion right lip comissure - Neck Neck exam general surgery: Present: full ROM, normal inspection, supple, trachea midline. Absent: tenderness - Respiratory Respiratory exam: Present: CTAB. Absent: rales, rhonchi, wheezes - Cardiovascular Cardiovascular exam: Present: RRR, +S1, +S2. Absent: diastolic murmur, JVD, systolic murmur - GI/Abdominal GI/Abdominal exam: Present: normal bowel sounds, soft. Absent: distended, guarding, tenderness - Extremities Exam Extremities exam: Present: full ROM, normal inspection, warm. Absent: pedal edema, tenderness - Back Exam Back exam: Present: full ROM, normal inspection. Absent: tenderness - Neurological Exam Neurological exam: Present: alert, normal gait, oriented X3, no focal deficits, strengths equal and symetr throughout. Absent: facial droop, speech deficit - Psychiatric Psychiatric exam: Present: normal affect, normal mood - Skin Skin exam: Present: dry, intact, normal color, warm. Absent: diaphoretic, erythema, pallor <Yasemin Jamison - Last Filed: 08/12/16 17:37> - Discharge Diagnosis (1) Encephalopathy Status: Resolved (2) Acute respiratory failure Status: Resolved Qualifiers: Respiratory failure complication: unspecified whether with hypoxia or hypercapnia Qualified Code(s): J96.00 - Acute respiratory failure, unspecified whether with hypoxia or hypercapnia (3) Acute renal failure Status: Resolved Qualifiers: Acute renal failure type: unspecified Qualified Code(s): N17.9 - Acute kidney failure, unspecified (4) Bacteremia Status: Acute (5) Cardiomyopathy Status: Acute Qualifiers: Cardiomyopathy type: due to drug Qualified Code(s): I42.7 - Cardiomyopathy due to drug and external agent (6) Cocaine overdose Status: Acute Qualifiers: Encounter type: subsequent encounter Injury intent: undetermined intent Qualified Code(s): T40.5X4D - Poisoning by cocaine, undetermined, subsequent encounter (7) Elevated troponin Status: Acute (8) High anion gap metabolic acidosis Status: Resolved (9) Polysubstance abuse Status: Chronic (10) Systolic heart failure Status: Acute Qualifiers: Heart failure chronicity: unspecified heart failure chronicity Qualified Code(s): I50.20 - Unspecified systolic (congestive) heart failure Procedures/tests Complete & Pending: Procedures Performed prior 72 hours Category Date Time Status ECG 12 lead ECG [ECG] Stat Y 08/11/16 01:39 Completed ECG 12 lead ECG [ECG] Stat Y 08/11/16 01:41 Completed ECG 12 lead ECG [ECG] Stat Y 08/11/16 02:00 Completed EV SUNNY transesophageal echo Stat Y 08/12/16 13:19 Completed Date of admission: 08/08/16 12:15 Primary care physician: PCP NO Consults: 08/08/16 12:51 Consult to Cardiology [CONS] Routine Comment: Consulting Provider: Cardiology [place] Reason for Consult: elevated troponin, new cardiomyopathy, cocaine abuse Call Completed: No 08/09/16 09:53 Consult to Infectious Diseases [CONS] Routine Consulting Provider: Infectious Disease [place] Reason for Consult: Bacteremia, IV drug abuse Call Completed: No 08/10/16 09:35 Consult to Turnaround Planner [CONS] Routine Reason for SW Consult: resources for outpatient rehab Hospital course: Mr. Covington is a 31 year old male - Time Spent with Patient Total time spent providing and/or coordinating discharge services: - Constitutional Vitals: Temp Pulse Resp BP Pulse Ox 97.5 F L 56 20 121/78 96 08/12/16 15:09 08/12/16 15:09 08/12/16 15:09 08/12/16 15:09 08/12/16 15:09 - Attending Attestation I examined this patient and reviewed laboratory, imaging and all diagnostic data. My medical decision-making was reviewed with Dr Monge - Resident Physician. I agree with the documented findings, disposition and treatment plan as described above.
[2016-08-12] MEDS ORDERED: Tetracaine/Benzocaine/Butamben 200MG/SPRAY (100SPY/BOT) MM ONE (10:41)
[2016-08-12] MEDS ORDERED: 0.9 % Sodium Chloride 500 ML IVC ONE (10:41)
[2016-08-12] MEDS: *HR* Midazolam HCl 5 MG/5 ML VIAL IVP PRN ×4 (12:15→12:30)
[2016-08-12] MEDS: *HR* FentaNYL (PF) 100 MCG/2 ML VIAL IVP PRN ×4 (12:15→12:30)
--- NOTE | 2016-08-12 13:10 | Electrocardiograph Report ---
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
--- NOTE | 2016-08-12 13:11 | Electrocardiograph Report ---
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
--- NOTE | 2016-08-12 13:11 | Electrocardiograph Report ---
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
--- NOTE | 2016-08-12 14:49 | ECHO - Doppler Report ---
Transesophageal Echocardiogram Name: Eddie Covington Date of Study: 08/12/2016 Date: 1985 Ht: 76.0in Medical Record#: [id number] Age: 31 Wt: 204.0lb Gender: Male BSA: 2.23 Order #: [id number] Location: [facility] Room #: 3A25 Reading Physician: Dinesh Garcia DO, [facility] [employer] Developer: Tara Timmons RDCS, RVT Ordering Physician: Gamal Monge DO Primary Physician: None Indications: R/O Endocarditis Impressions: LVEF 55%. Normal LV size and function. Right ventricle was normal in size and systolic function. No signifianct valvular dysfunction. No evidence of infective endocarditis. LV function inproved compared to prior TTE report. Repeat TTE or SUNNY as cllinically indicated. Left Ventricular Wall Motion: Transesophageal Echo Findings All wall segments showed normal motion. Procedure Summary: After explaining the risks, benefits, and alternatives of the procedure to the patient in detail and answering all questions to satisfaction, an informed consent was obtained in writing. The patient was NPO for the six hours prior to the procedure. The patient denied dysphagia, odynophagia, and loose teeth. The patient was monitored with periodic automated blood pressures and continuous pulse oximetry and telemetry. Continuous oxygen was administered by PA. The patient was placed in the full upright position and the posterior oropharynx was anesthetized as above and complete suppression of the gag reflex was obtained. The patient was then placed in the left lateral decubitus position, the neck was flexed, and a bite block was placed in the patient's mouth. IV sedation was administered. Once adequate sedation was achieved, a well-lubricated anteflexed multipoint intraesophageal echocardiographic probe was inserted into the midline posterior oropharynx. Gentle pressure was applied as the patient swallowed and the esophagus was intubated without difficulty. The scope was advanced to the mid esophagus without encountering resistance. Images were obtained from the mid and upper esophagus. Images from the gastric globe were obtained. The intra-atrial septum was assessed by color-flow Doppler and agitated saline. The scope was then rotated approximately 180 degrees and withdrawn, visualizing the length of the aorta. The scope was then slowly withdrawn as the patient was continually suctioned. The patient tolerated the procedure well. Medication Given: Time Medication Dose Units Route 12:15 Versed 2 mg IV 12:15 Fentanyl 50 mcg IV 12:20 Versed 2 mg IV 12:20 Fentanyl 50 mcg IV 12:25 Versed 2 mg IV 12:25 Fentanyl 50 mcg IV 12:30 Versed 2 mg IV 12:30 Fentanyl 50 mcg IV Findings: Study Quality * Technically adequate exam. ECG Findings * Normal sinus rhythm Left Ventricle * LVEF 55%. * Normal LV size and function. Right Ventricle * Right ventricle was normal in size and systolic function. Left Atrium * Left atrum was within normal limits. Right Atrium * Right atrium was within normal limits. Aortic Valve * The aortic valve is tricuspid. * Normal structure * No aortic regurgitation. * No aortic stenosis. Mitral Valve * Normal structure and function * No mitral regurgitation. * No mitral stenosis. Tricuspid Valve * Normal structure and function. * Trivial tricuspid regurgitation. Pulmonic Valve * Normal structure and function. * Trivial pulmonic regurgitation. Aorta * The aortic root is not dilated. Pericardium * No pericardial effusion. Pulmonary Artery * Normal pulmonary artery. Complications: None History: History of Smoking Years 8 Packs 0.5 Previous Echo08/07/2016 BP 155 / 106 Updated by Dinesh Garcia DO, FACC, TRUMAN, JASMIN on 08/12/2016 2:41:48 PM electronically signed on 08/12/2016 2:42:48 PM with status of Final Wall Motion Szymanski: 1=Normal, 2=Hypokinesis, 3=Akinesis, 4=Dyskinesis, 5=Aneurysmal, 6=Hyperkinetic, X=Not Visualized (Blank)=Missing Wall MotionIndex SUNNY Total of all scored melendez 17 Index Divided by ---- = 1 Total number of melendez scored 17
[2016-08-13 04:48] LABS: Basophils # 0.1 K/mcL (0.0-0.2); Basophils % 0.8 %; Eosinophils # 0.3 K/mcL (0.0-0.6); Eosinophils % 4.1 %; Hematocrit 41.5 % (37.5-50.1); Hemoglobin 14.4 g/dL (12.9-16.9); Immature Granulocytes % 0.3 % (0-4); Lymphocytes # 2.9 K/mcL (0.6-4.6); Lymphocytes % 43.9 %; Mean Corpuscular HGB Conc 34.7 g/dL (31.6-35.5); Mean Corpuscular Hemoglobin 30.1 pg (28.0-33.3); Mean Corpuscular Volume 86.8 fL (83.0-100.0); Mean Platelet Volume 9.5 fL (9.4-12.4); Monocytes # 0.7 K/mcL (0.0-1.3); Monocytes % 11.1 %; Neutrophils # 2.6 K/mcL (1.6-8.9); Platelet Count 189 K/mcL (140-400); Red Blood Count 4.78 M/mcL (4.19-5.50); Red Cell Distribution Width 12.5 % (11.5-14.5); Segmented Neutrophils % 39.8 %
[2016-08-13 05:04] LABS: Alanine Aminotransferase 292 Units/L (0-55); Albumin 3.3 g/dL (3.5-5.0); Albumin/Globulin Ratio 0.8 (1.1-2.2); Alkaline Phosphatase 59 Units/L (38-126); Aspartate Amino Transferase 53 Units/L (5-34); BUN/Creatinine Ratio 16 (6-26); Bilirubin,Total 0.4 mg/dL (0.2-1.2); Blood Urea Nitrogen 15 mg/dL (8-26); Calcium 8.7 mg/dL (8.6-10.8); Carbon Dioxide 23 mEq/L (19-29); Chloride 108 mEq/L (98-109); Globulin 4.1 g/dL (2.4-3.5); Glucose 94 mg/dL (70-99); Magnesium 2.1 mg/dL (1.6-2.6); Osmolality,Calculated 293 (280-300); Potassium 3.7 mEq/L (3.5-4.5); Sodium 141 mEq/L (136-145); Total Protein 7.4 g/dL (6.0-8.3); eGFR For African Americans > 60 (> 60); eGFR For Non-African Americans > 60 (> 60)
[2016-08-13 06:54] VITALS: BP 113/71
[2016-08-13] MEDS: Nicotine 14 MG PATCH.TD24 TD SCH (08:09)
--- NOTE | 2016-08-13 08:09 | Internal Med Progress Note ---
<Gamal Monge - Last Filed: 08/13/16 11:11> Date of Encounter: 08/13/16 Time of Encounter: 08:09 - Assessment and plan (1) Encephalopathy Status: Resolved Assessment and plan: Resolved. Metabolic encephalopathy secondary to polysubstance abuse. 31-year-old male with a history of substance abuse including cocaine, opiates, prescription drugs, and marijuana presented to the ER with changes in his mental status and inability to protect his airway and was intubated. Urine drug screen positive for cocaine. (2) Acute respiratory failure Status: Resolved Assessment and plan: Resolved. Intubated for airway protection due to severe encephalopathy on 08/07/2016. Successfully extubated on 08/08/2016. Qualifiers: Respiratory failure complication: unspecified whether with hypoxia or hypercapnia Qualified Code(s): J96.00 - Acute respiratory failure, unspecified whether with hypoxia or hypercapnia (3) Acute renal failure Status: Resolved Assessment and plan: Resolved. Cr 0.84 Secondary to hypoperfusion from rhabdomyolysis, sepsis, encephalopathy and drug overdose. Qualifiers: Acute renal failure type: unspecified Qualified Code(s): N17.9 - Acute kidney failure, unspecified (4) Bacteremia Status: Acute Assessment and plan: Gram positive cocci bacteremia. 08/07/16 blood culture grew Streptococcus salivarius, second blood culture no growth to date. 08/10/16 no growth to date. 08/11/16 blood cultures no growth to date. Echocardiogram revealed severe global reduction in LV systolic function, LVEF 30 %, RV normal in size with severe reduction in function, mild pulmonic regurgitation. SUNNY completed revealed LVEF 55%, normal LV size and function, RV was normal in size and systolic function, no valvular dysfunction, no evidence of infective endocarditis, LV function improved from TTE earlier. Continue Rocephin d5. Infectious disease following. Patient was unable to be discharged yesterday despite normal SUNNY due to social concerns, unable to get medication, no insurance. Discharge order was placed, condition pending social work clearance. (5) Cardiomyopathy Status: Acute Assessment and plan: Likely secondary to cocaine use. Echocardiogram revealed severe global reduction in LV systolic function, LVEF 30 %, RV normal in size with severe reduction in function, mild pulmonic regurgitation. No acute exacerbation. Start lisinopril per cardio recommendations. Patient to follow up as outpatient. Qualifiers: Cardiomyopathy type: due to drug Qualified Code(s): I42.7 - Cardiomyopathy due to drug and external agent (6) Cocaine overdose Status: Acute Assessment and plan: Patient counseled to quit drugs. Patient understands and is willing to seek treatment at outpatient rehab. Social work working on referral to rehab facilities. Qualifiers: Encounter type: subsequent encounter Injury intent: undetermined intent Qualified Code(s): T40.5X4D - Poisoning by cocaine, undetermined, subsequent encounter (7) Elevated troponin Status: Acute Assessment and plan: Troponin elevation secondary to cocaine use. Last troponin 0.29, decreased from admission. (8) High anion gap metabolic acidosis Status: Resolved Assessment and plan: Resolved. Lactic acidosis, negative alcohol and salicylate levels. (9) Polysubstance abuse Status: Chronic Assessment and plan: Per plan in assessments above (10) Systolic heart failure Status: Acute Assessment and plan: LVEF 30% on echo on TTE. LVEF 55% on SUNNY completed 08/12/16. Secondary to cocaine abuse. Per plan in assessments above. Qualifiers: Heart failure chronicity: unspecified heart failure chronicity Qualified Code(s): I50.20 - Unspecified systolic (congestive) heart failure - Subjective Interval history: Patient was unable to be discharged yesterday due to pending social work issue determining medications upon discharge. Patient will receive ceftriaxone IM antibiotics for a total course of 14 days, patient to drop by clinic for administration of medications. Patient reports doing well overnight. Patient denies fevers, chills, sweats, headaches, chest pain, nausea, vomting, shortness of breath, abdominal pain, changes in bowels or bladder, weakness, or loss of sensation. - Constitutional Vitals: Temp Pulse Resp BP Pulse Ox 97.9 F 49 18 113/71 98 08/13/16 06:50 08/13/16 06:50 08/13/16 06:50 08/13/16 06:50 08/13/16 06:50 General appearance: Present: cooperative, A&O X 3, pleasant, no acute distress, answers questions appropriately - Head Head exam: Present: atraumatic, normal inspection, normocephalic - Eye Eye exam: Present: normal appearance - ENT ENT exam: Present: mucous membranes moist, normal exam, normal external ear exam , normal oropharynx - Neck Neck exam general surgery: Present: full ROM, normal inspection, supple, trachea midline. Absent: tenderness - Respiratory Respiratory exam: Present: CTAB. Absent: rales, rhonchi, wheezes - Cardiovascular Cardiovascular exam: Present: RRR, +S1, +S2 - GI/Abdominal GI/Abdominal exam: Present: normal bowel sounds, soft. Absent: distended, guarding, tenderness - Extremities Exam Extremities exam: Present: full ROM, normal inspection, warm. Absent: pedal edema, tenderness - Neurological Exam Neurological exam: Present: alert, oriented X3, no focal deficits, strengths equal and symetr throughout. Absent: facial droop, speech deficit - Psychiatric Psychiatric exam: Present: normal affect, normal mood - Skin Skin exam: Present: dry, intact, normal color, warm Internal Medicine: Result - Labs CBC & Chem 7: 08/13/16 04:19 08/13/16 04:19 Labs: Short CBC 08/13/16 Range/Units 04:19 WBC 6.5 (4.3-11.1) K/mcL Hgb 14.4 (12.9-16.9) g/dL Hct 41.5 (37.5-50.1) % Plt Count 189 (140-400) K/mcL Neutrophils # 2.6 (1.6-8.9) K/mcL BMP 08/13/16 04:19 Sodium 141 Potassium 3.7 Chloride 108 Carbon Dioxide 23 BUN 15 Creatinine 0.92 Glucose 94 Calcium 8.7 Liver Function 08/13/16 Range/Units 04:19 Total Bilirubin 0.4 (0.2-1.2) mg/dL AST 53 H (5-34) Units/L ALT 292 H (0-55) Units/L Alkaline Phosphatase 59 (38-126) Units/L Albumin 3.3 L (3.5-5.0) g/dL - ABG Interpretation ABG results: ABG ABG pH 7.30 pH Units (7.32-7.45) L D 08/07/16 Unknown ABG pCO2 47 mmHg (35-45) H 08/07/16 Unknown ABG pO2 103 mmHg (85-104) 08/07/16 Unknown ABG O2 Saturation 97 % (95-98) 08/07/16 Unknown PT/INR, D-dimer PT 13.0 Seconds (9.4-12.1) H 08/07/16 23:40 Consult Discharge Plan - Plan Referrals: Donna Oliveros MD [Partnered Physician] - (OFFICE WILL CALL WITH APPOINTMENT) Dinesh Garcia DO [Partnered Physician] - 08/26/16 1:30 pm Prescriptions: CefTRIAXone [Rocephin] 1,000 mg IM DAILY #10 vial Omeprazole [PriLOSEC] 20 mg PO DAILY@629 #30 capsule. <Yasemin Jamison E - Last Filed: 08/13/16 18:51> - Assessment and plan (1) Encephalopathy Status: Resolved (2) Acute respiratory failure Status: Resolved Qualifiers: Respiratory failure complication: unspecified whether with hypoxia or hypercapnia Qualified Code(s): J96.00 - Acute respiratory failure, unspecified whether with hypoxia or hypercapnia (3) Acute renal failure Status: Resolved Qualifiers: Acute renal failure type: unspecified Qualified Code(s): N17.9 - Acute kidney failure, unspecified (4) Bacteremia Status: Acute (5) Cardiomyopathy Status: Acute Qualifiers: Cardiomyopathy type: due to drug Qualified Code(s): I42.7 - Cardiomyopathy due to drug and external agent (6) Cocaine overdose Status: Acute Qualifiers: Encounter type: subsequent encounter Injury intent: undetermined intent Qualified Code(s): T40.5X4D - Poisoning by cocaine, undetermined, subsequent encounter (7) Elevated troponin Status: Acute (8) High anion gap metabolic acidosis Status: Resolved (9) Polysubstance abuse Status: Chronic (10) Systolic heart failure Status: Acute Qualifiers: Heart failure chronicity: unspecified heart failure chronicity Qualified Code(s): I50.20 - Unspecified systolic (congestive) heart failure - Constitutional Vitals: Temp Pulse Resp BP Pulse Ox 97.9 F 49 18 113/71 98 08/13/16 06:50 08/13/16 06:50 08/13/16 06:50 08/13/16 06:50 08/13/16 06:50 Internal Medicine: Result - Labs CBC & Chem 7: 08/13/16 04:19 08/13/16 04:19 Labs: Short CBC 08/13/16 Range/Units 04:19 WBC 6.5 (4.3-11.1) K/mcL Hgb 14.4 (12.9-16.9) g/dL Hct 41.5 (37.5-50.1) % Plt Count 189 (140-400) K/mcL Neutrophils # 2.6 (1.6-8.9) K/mcL BMP 08/13/16 04:19 Sodium 141 Potassium 3.7 Chloride 108 Carbon Dioxide 23 BUN 15 Creatinine 0.92 Glucose 94 Calcium 8.7 Liver Function 08/13/16 Range/Units 04:19 Total Bilirubin 0.4 (0.2-1.2) mg/dL AST 53 H (5-34) Units/L ALT 292 H (0-55) Units/L Alkaline Phosphatase 59 (38-126) Units/L Albumin 3.3 L (3.5-5.0) g/dL - ABG Interpretation ABG results: ABG ABG pH 7.30 pH Units (7.32-7.45) L D 08/07/16 Unknown ABG pCO2 47 mmHg (35-45) H 08/07/16 Unknown ABG pO2 103 mmHg (85-104) 08/07/16 Unknown ABG O2 Saturation 97 % (95-98) 08/07/16 Unknown PT/INR, D-dimer PT 13.0 Seconds (9.4-12.1) H 08/07/16 23:40 - Attending Attestation I examined this patient and reviewed laboratory, imaging and all diagnostic data. My medical decision-making was reviewed with Gamal Hernandez - Resident Physician. I agree with the documented findings, disposition and treatment plan as described above.
== END 2016-08-13 12:27 | disposition home or self-care (01) | DRG 951 ==
LOC: EMEROO 13:01 → ICNU 13:01 → SUATTDRO 08-08 12:15 → 3ANU 08-09 18:26
PROVIDERS: ADMIT Internal Medicine; ATTEND Internal Medicine

== ENCOUNTER 2016-12-15 00:39 | Inpatient (IN) ==
--- NOTE | 2016-12-15 01:12 | Emergency Department Note ---
Disposition Clinical Impression: Suicidal ideation Disposition: Admitted As Inpatient Condition: Fair Referrals: NO,PCP [Primary Care Provider] - Forms: ED Satisfaction Letter Time of Disposition: 03:42 Psych HPI - General Chief Complaint: ED Psychiatric Symptoms Stated Complaint: SI Time Seen by Provider: 12/15/16 00:45 Source: patient Mode of arrival: ambulatory Limitations: no limitations Nursing Notes Reviewed: Yes Vital Signs Reviewed: Yes - History of Present Illness HPI Narrative: Alert and oriented nontoxic appearing 31-year-old male presents to the emergency department for a complaint of suicidal ideation. The patient states he is underwent many significant stressors at home recently. He states that he has recently been terminated from his employment. He states that he has a 5- year-old daughter at home and is concerned about how to take care of her. He admits to ingesting 4 to 5, 30 milligrams oxycodone and several days ago in an attempt to cause self harm. He states that he has had thoughts of ingesting large amounts of prescription drugs/illicit/recreational drugs in an attempt to call self harm. He states that he has dealt with anxiety and depression for several years, however this has been worsened over the course of the past week. He states that he was on Lexapro for his depression however he began to "feel better" and such discontinued the medication without his primary care providers knowing. He denies any visual or auditory hallucinations. He denies any homicidal ideations. Pt complaint: suicidal ideation, feels depressed Onset (ago): week(s) Duration: getting worse History of similar episodes: Yes Improves with: none Worsens with: none Context: recent drug abuse Associated Psychiatric Symptoms: depression, suicidal ideation Self harm or harm to others: admits thoughts of self harm, has plan - Related Data Previous Rx's Medication Instructions Recorded Clindamycin HCl 300 mg PO TID #30 capsule 10/17/16 Erythromycin OPTH Oint 1 appl LEFT EYE QID #1 tube 10/17/16 Fluticasone Propionate Nasal 120 spray NS DAILY #1 bottle 10/17/16 [Flonase] Ibuprofen [Motrin] 600 mg PO Q6HR PRN #20 tab 10/17/16 Ketoconazole Shampoo [Nizoral 120 ml TP DAILY #3 shampoo 10/17/16 Shampoo] Allergies Allergy/AdvReac Type Severity Reaction Status Date / Time No Known Allergies Allergy Verified 12/15/16 00:41 All systems ED: reviewed and negative except as stated. Constitutional: Denies: fever, chills, weakness, weight change Eyes: Denies: eye pain, eye discharge, vision change ENT ED: Denies: ear pain, throat pain, dental pain, hearing loss, epistaxis, congestion, dysphagia Cardiovascular: Denies: chest pain, palpitations, dyspnea on exertion, edema, syncope Respiratory: Denies: cough, dyspnea, wheezes, hemoptysis, stridor Gastrointestinal: Denies: abdominal pain, nausea, vomiting, diarrhea, constipation, hematemesis, melena, hematochezia Genitourinary: Denies: urgency, dysuria, frequency, hematuria Musculoskeletal: Denies: back pain, neck pain, arthralgia, myalgia Integumentary: Denies: rash, abrasion, lesions Neurological: Denies: headache, weakness, numbness, paresthesias, confusion, abnormal gait, vertigo Psychiatric: Reports: as per HPI, anxiety, depression, suicidal thoughts. Denies: homicidal thoughts, auditory hallucinations, visual hallucinations Endocrine: Denies: fatigue Hematological/Lymphatic: Denies: easy bleeding, easy bruising Allergic/Immunologic: Denies: facial swelling, urticaria Past Medical History - Past Medical History Attestation: Yes The following information was validated with the patient. Source: patient, nursing notes reviewed Medical history: Reports: CHF Surgical history: Reports: orthopedic, other Psychiatric history: Reports: anxiety, depression - Social History Smoking Status: Current every day smoker Smokeless Tobacco Status: No Alcohol use: Reports: occasionally Drug use: Reports: cocaine, opiates, marijuana, IV Drug Use, prescription drug abuse, other Physical Exam - General Limitations: no limitations General appearance: alert, in no apparent distress - Head Head exam: atraumatic, normocephalic, normal inspection - Eye Eye exam: Present: normal appearance, PERRL, EOMI. Absent: nystagmus - ENT ENT exam: mucous membranes moist - Neck Neck exam: Present: normal inspection, full ROM, trachea midline - Chest Chest inspection: Present: normal inspection, symmetric chest wall rise - Respiratory Respiratory exam: Present: normal lung sounds bilaterally. Absent: respiratory distress, wheezes, stridor, accessory muscle use, prolonged expiratory phase - Cardiovascular Cardiovascular exam: Present: regular rate, normal rhythm, normal heart sounds - Abdominal Exam Abdominal exam: Present: soft, Non-Tender, normal bowel sounds. Absent: tenderness, distention, guarding, rebound, rigidity - Extremities Exam Extremities exam: Present: normal inspection, full ROM. Absent: tenderness, pedal edema - Neurological Exam Neurological exam: Present: alert, oriented X3 - Psychiatric Psychiatric exam: Present: normal affect, depressed - Skin Skin exam: Present: warm, dry, intact, normal color Course Course Narrative: 0235: [facility] has been notified of the need for evaluation of this patient. At this time, we are awaiting a member of [facility] for a psychiatric consultation. 0340: I been notified by the patient's nurse Geneva that the patient will be admitted to the inpatient psychiatric unit. Vital Signs Temperature 97.5 F L 12/15/16 00:41 Pulse Rate 87 12/15/16 00:41 Respiratory Rate 14 12/15/16 00:41 Blood Pressure 146/97 12/15/16 00:41 O2 Sat by Pulse Oximetry 99 12/15/16 00:41 Temperature 97.5 F L 12/15/16 00:41 Pulse Rate 87 12/15/16 00:41 Respiratory Rate 14 12/15/16 00:41 Blood Pressure 146/97 12/15/16 00:41 O2 Sat by Pulse Oximetry 99 12/15/16 00:41 Oxygen Delivery Oxygen Delivery Room Air Psych - Lab Data Lab results reviewed: Yes I reviewed the patient's lab results. Lab results narrative: Laboratory Last Values WBC 9.7 K/mcL (4.3-11.1) 12/15/16 01:07 RBC 4.94 M/mcL (4.19-5.50) 12/15/16 01:07 Hgb 14.3 g/dL (12.9-16.9) 12/15/16 01:07 Hct 42.7 % (37.5-50.1) 12/15/16 01:07 MCV 86.4 fL (83.0-100.0) 12/15/16 01:07 MCH 28.9 pg (28.0-33.3) 12/15/16 01:07 MCHC 33.5 g/dL (31.6-35.5) 12/15/16 01:07 RDW 12.4 % (11.5-14.5) 12/15/16 01:07 Plt Count 174 K/mcL (140-400) 12/15/16 01:07 MPV 9.3 fL (9.4-12.4) L 12/15/16 01:07 Immature Gran % 0.2 % (0-4) 12/15/16 01:07 Seg Neutrophils % 68.2 % 12/15/16 01:07 Lymphocytes % 20.9 % 12/15/16 01:07 Monocytes % 10.0 % 12/15/16 01:07 Eosinophils % 0.3 % 12/15/16 01:07 Basophils % 0.4 % 12/15/16 01:07 Neutrophils # 6.6 K/mcL (1.6-8.9) 12/15/16 01:07 Lymphocytes # 2.0 K/mcL (0.6-4.6) 12/15/16 01:07 Monocytes # 1.0 K/mcL (0.0-1.3) 12/15/16 01:07 Eosinophils # 0.0 K/mcL (0.0-0.6) 12/15/16 01:07 Basophils # 0.0 K/mcL (0.0-0.2) 12/15/16 01:07 Sodium 136 mEq/L (136-145) 12/15/16 01:07 Potassium 4.0 mEq/L (3.5-4.5) 12/15/16 01:07 Chloride 102 mEq/L (98-109) 12/15/16 01:07 Carbon Dioxide 25 mEq/L (19-29) 12/15/16 01:07 BUN 16 mg/dL (8-26) 12/15/16 01:07 Creatinine 0.98 mg/dL (0.72-1.25) 12/15/16 01:07 Est GFR ( Amer) > 60 (> 60) 12/15/16 01:07 Est GFR (Non-Af Amer) > 60 (> 60) 12/15/16 01:07 BUN/Creatinine Ratio 16 (6-26) 12/15/16 01:07 Glucose 86 mg/dL (70-99) 12/15/16 01:07 Calculated Osmolality 282 (280-300) 12/15/16 01:07 Calcium 9.4 mg/dL (8.6-10.8) 12/15/16 01:07 Urine Color Dark Yellow (Yellow) 12/15/16 02:08 Urine Clarity Clear (Clear) 12/15/16 02:08 Urine pH 6.0 pH Units (5.0-8.0) 12/15/16 02:08 Ur Specific [place] > 1.030 (1.010-1.025) H 12/15/16 02:08 Urine Protein 30 mg/dL (Neg-Trace) H 12/15/16 02:08 Urine Glucose (UA) Normal mg/dL (Normal) 12/15/16 02:08 Urine Ketones 15 mg/dL (Negative) H 12/15/16 02:08 Urine Blood Negative (Negative) 12/15/16 02:08 Urine Nitrite Negative (Negative) 12/15/16 02:08 Urine Bilirubin Small (Negative) H 12/15/16 02:08 Urine Urobilinogen Normal mg/dL (Normal) 12/15/16 02:08 Ur Leukocyte Esterase Negative (Negative) 12/15/16 02:08 Urine Microscopic RBC 0-3 per hpf (0-3) 12/15/16 02:08 Urine Microscopic WBC 3-5 per hpf (0-3) H 12/15/16 02:08 Ur Squamous Epith Cells Moderate per lpf (None-Few) H 12/15/16 02:08 Urine Bacteria None Seen per hpf (None-Few) 12/15/16 02:08 Hyaline Casts Few per lpf (None-Few) 12/15/16 02:08 Salicylates < 5.0 mg/dL (15-30) L 12/15/16 01:07 Urine Opiates Screen Positive ng/mL (Pblfcc=561) H 12/15/16 02:08 Acetaminophen < 1.0 mcg/mL (10-30) L 12/15/16 01:07 Ur Barbiturates Screen Negative ng/mL (Zrrsjj=410) 12/15/16 02:08 Ur Phencyclidine Scrn Negative ng/mL (Cutoff=25) 12/15/16 02:08 Ur Amphetamines Screen Negative ng/mL (Puojze=0358) 12/15/16 02:08 U Benzodiazepines Scrn Negative ng/mL (Xpezfz=381) 12/15/16 02:08 Urine Cocaine Screen Positive ng/mL (Cutoff= 300) H 07/25/17 02:08 U Marijuana (THC) Screen Positive ng/mL (Cutoff = 50) H 12/15/16 02:08 Ethyl Alcohol < 10 mg/dL (0-10) 12/15/16 01:07 Result diagrams: 12/15/16 01:07 12/15/16 01:07 Lab Results 12/15/16 12/15/16 12/15/16 Range/Units 01:07 01:07 02:08 WBC 9.7 (4.3-11.1) K/mcL RBC 4.94 (4.19-5.50) M/mcL Hgb 14.3 (12.9-16.9) g/dL Hct 42.7 (37.5-50.1) % MCV 86.4 (83.0-100.0) fL MCH 28.9 (28.0-33.3) pg MCHC 33.5 (31.6-35.5) g/dL RDW 12.4 (11.5-14.5) % Plt Count 174 (140-400) K/mcL MPV 9.3 L (9.4-12.4) fL Immature Gran % 0.2 (0-4) % Seg Neutrophils % 68.2 % Lymphocytes % 20.9 % Monocytes % 10.0 % Eosinophils % 0.3 % Basophils % 0.4 % Neutrophils # 6.6 (1.6-8.9) K/mcL Lymphocytes # 2.0 (0.6-4.6) K/mcL Monocytes # 1.0 (0.0-1.3) K/mcL Eosinophils # 0.0 (0.0-0.6) K/mcL Basophils # 0.0 (0.0-0.2) K/mcL Sodium 136 (136-145) mEq/L Potassium 4.0 (3.5-4.5) mEq/L Chloride 102 (98-109) mEq/L Carbon Dioxide 25 (19-29) mEq/L BUN 16 (8-26) mg/dL Creatinine 0.98 (0.72-1.25) mg/dL Est GFR ( Amer) > 60 (> 60) Est GFR (Non-Af Amer) > 60 (> 60) BUN/Creatinine Ratio 16 (6-26) Glucose 86 (70-99) mg/dL Calculated Osmolality 282 (280-300) Calcium 9.4 (8.6-10.8) mg/dL Urine Color Dark Yellow (Yellow) Urine Clarity Clear (Clear) Urine pH 6.0 (5.0-8.0) pH Units Ur Specific [place] > 1.030 H (1.010-1.025) Urine Protein 30 H (Neg-Trace) mg/dL Urine Glucose (UA) Normal (Normal) mg/dL Urine Ketones 15 H (Negative) mg/dL Urine Blood Negative (Negative) Urine Nitrite Negative (Negative) Urine Bilirubin Small H (Negative) Urine Urobilinogen Normal (Normal) mg/dL Ur Leukocyte Esterase Negative (Negative) Urine Microscopic RBC 0-3 (0-3) per hpf Urine Microscopic WBC 3-5 H (0-3) per hpf Ur Squamous Epith Cells Moderate H (None-Few) per lpf Urine Bacteria None Seen (None-Few) per hpf Hyaline Casts Few (None-Few) per lpf Salicylates < 5.0 L (15-30) mg/dL Urine Opiates Screen (Fkrphq=657) ng/mL Acetaminophen < 1.0 L (10-30) mcg/mL Ur Barbiturates Screen (Wyloxq=806) ng/mL Ur Phencyclidine Scrn (Cutoff=25) ng/mL Ur Amphetamines Screen (Gjbesp=6362) ng/mL U Benzodiazepines Scrn (Jfjzoy=629) ng/mL Urine Cocaine Screen (Cutoff= 300) ng/mL U Marijuana (THC) Screen (Cutoff = 50) ng/mL Ethyl Alcohol < 10 (0-10) mg/dL 12/15/16 Range/Units 02:08 WBC (4.3-11.1) K/mcL RBC (4.19-5.50) M/mcL Hgb (12.9-16.9) g/dL Hct (37.5-50.1) % MCV (83.0-100.0) fL MCH (28.0-33.3) pg MCHC (31.6-35.5) g/dL RDW (11.5-14.5) % Plt Count (140-400) K/mcL MPV (9.4-12.4) fL Immature Gran % (0-4) % Seg Neutrophils % % Lymphocytes % % Monocytes % % Eosinophils % % Basophils % % Neutrophils # (1.6-8.9) K/mcL Lymphocytes # (0.6-4.6) K/mcL Monocytes # (0.0-1.3) K/mcL Eosinophils # (0.0-0.6) K/mcL Basophils # (0.0-0.2) K/mcL Sodium (136-145) mEq/L Potassium (3.5-4.5) mEq/L Chloride (98-109) mEq/L Carbon Dioxide (19-29) mEq/L BUN (8-26) mg/dL Creatinine (0.72-1.25) mg/dL Est GFR ( Amer) (> 60) Est GFR (Non-Af Amer) (> 60) BUN/Creatinine Ratio (6-26) Glucose (70-99) mg/dL Calculated Osmolality (280-300) Calcium (8.6-10.8) mg/dL Urine Color (Yellow) Urine Clarity (Clear) Urine pH (5.0-8.0) pH Units Ur Specific [place] (1.010-1.025) Urine Protein (Neg-Trace) mg/dL Urine Glucose (UA) (Normal) mg/dL Urine Ketones (Negative) mg/dL Urine Blood (Negative) Urine Nitrite (Negative) Urine Bilirubin (Negative) Urine Urobilinogen (Normal) mg/dL Ur Leukocyte Esterase (Negative) Urine Microscopic RBC (0-3) per hpf Urine Microscopic WBC (0-3) per hpf Ur Squamous Epith Cells (None-Few) per lpf Urine Bacteria (None-Few) per hpf Hyaline Casts (None-Few) per lpf Salicylates (15-30) mg/dL Urine Opiates Screen Positive H (Oetuqt=602) ng/mL Acetaminophen (10-30) mcg/mL Ur Barbiturates Screen Negative (Dwslfp=857) ng/mL Ur Phencyclidine Scrn Negative (Cutoff=25) ng/mL Ur Amphetamines Screen Negative (Xusnvd=2398) ng/mL U Benzodiazepines Scrn Negative (Eqjqzu=215) ng/mL Urine Cocaine Screen Positive H (Cutoff= 300) ng/mL U Marijuana (THC) Screen Positive H (Cutoff = 50) ng/mL Ethyl Alcohol (0-10) mg/dL Psychiatric Medical Clearance - Medical Clearance Checklist Does the patient have a NEW psychiatric condition?: No Any abnormalities indicating possible medical illness?: No Any history of medical issues?: Yes Medical History: No Social History Section defined Any abnormal vital signs prior to transfer?: No Current Vitals: Last Vital Signs Temp 97.5 F L 12/15/16 00:41 Pulse 87 12/15/16 00:41 Resp 14 12/15/16 00:41 BP 146/97 12/15/16 00:41 Pulse Ox 99 12/15/16 00:41 Is the patient intoxicated or cognitively impaired?: No Psychiatric Lab Panel: Drug Levels and Toxicity 12/15/16 12/15/16 01:07 02:08 Urine Opiates Screen Positive H Acetaminophen < 1.0 L Ur Barbiturates Screen Negative Ur Phencyclidine Scrn Negative Ur Amphetamines Screen Negative U Benzodiazepines Scrn Negative Urine Cocaine Screen Positive H U Marijuana (THC) Screen Positive H Ethyl Alcohol < 10 Any abnormalities on the physical exam?: No Any abnormal labs?: No Abnormal Labs: Abnormal lab results MPV 9.3 fL (9.4-12.4) L 12/15/16 01:07 Ur Specific [place] > 1.030 (1.010-1.025) H 12/15/16 02:08 Urine Protein 30 mg/dL (Neg-Trace) H 12/15/16 02:08 Urine Ketones 15 mg/dL (Negative) H 12/15/16 02:08 Urine Bilirubin Small (Negative) H 12/15/16 02:08 Urine Microscopic WBC 3-5 per hpf (0-3) H 12/15/16 02:08 Ur Squamous Epith Cells Moderate per lpf (None-Few) H 12/15/16 02:08 Salicylates < 5.0 mg/dL (15-30) L 12/15/16 01:07 Urine Opiates Screen Positive ng/mL (Xfjdlk=582) H 12/15/16 02:08 Acetaminophen < 1.0 mcg/mL (10-30) L 12/15/16 01:07 Urine Cocaine Screen Positive ng/mL (Cutoff= 300) H 12/15/16 02:08 U Marijuana (THC) Screen Positive ng/mL (Cutoff = 50) H 12/15/16 02:08 Does the patient require durable medical equiptment?: No Is the patient ambulatory?: Yes Is the patient a fall risk?: No Has the patient been medically cleared?: Yes Any acute medical condition require Tx prior to transfer?: No Attestation Statement - Attestation Attestation: I, Cody Schwartz MD, personally evaluated this patient and discussed their management with the midlevel provicer, PAC/CLAIMS SERVICE REPRESENTATIVE. I reviewed the midlevel provider 's note and agree with the documented findings, medical decision making, and plan of care. 31-year-old male presents to the emergency department with a complaint of suicidal ideation. He admits to previous problems with suicidal ideation. He denies any suicide attempt or specific plan. On examination patient is a well-developed well-nourished male in no acute distress. He is alert and oriented 3. There is no cyanosis or diaphoresis. Breath sounds are clear and equal bilaterally. Heart regular rate and rhythm. Abdomen soft and nontender with normal bowel sounds. No gross focal neurological deficits. Labs reviewed. Chest x-ray negative.
[2016-12-15 01:13] LABS: Basophils % 0.4 %; Eosinophils % 0.3 %; Hematocrit 42.7 % (37.5-50.1); Hemoglobin 14.3 g/dL (12.9-16.9); Immature Granulocytes % 0.2 % (0-4); Lymphocytes % 20.9 %; Mean Corpuscular HGB Conc 33.5 g/dL (31.6-35.5); Mean Corpuscular Hemoglobin 28.9 pg (28.0-33.3); Mean Corpuscular Volume 86.4 fL (83.0-100.0); Mean Platelet Volume 9.3 fL (9.4-12.4); Neutrophils # 6.6 K/mcL (1.6-8.9); Platelet Count 174 K/mcL (140-400); Red Blood Count 4.94 M/mcL (4.19-5.50); Red Cell Distribution Width 12.4 % (11.5-14.5); Segmented Neutrophils % 68.2 %
[2016-12-15 01:26] LABS: BUN/Creatinine Ratio 16 (6-26); Blood Urea Nitrogen 16 mg/dL (8-26); Calcium 9.4 mg/dL (8.6-10.8); Carbon Dioxide 25 mEq/L (19-29); Chloride 102 mEq/L (98-109); Glucose 86 mg/dL (70-99); Osmolality,Calculated 282 (280-300); Sodium 136 mEq/L (136-145); eGFR For African Americans > 60 (> 60); eGFR For Non-African Americans > 60 (> 60)
[2016-12-15 01:28] LABS: Acetaminophen < 1.0 mcg/mL (10-30); Ethanol < 10 mg/dL (0-10); Salicylate < 5.0 mg/dL (15-30)
[2016-12-15 02:18] LABS: Bilirubin,Urine Small (Negative); Blood,Urine Negative (Negative); Clarity,Urine Clear (Clear); Color,Urine Dark Yellow (Yellow); Glucose,Urine (UA) Normal (Normal); Ketones,Urine 15 mg/dL (Negative); Leukocyte Esterase,Urine Negative (Negative); Nitrite,Urine Negative (Negative); Protein,Urine 30 mg/dL (Neg-Trace); Specific Gravity,Urine > 1.030 (1.010-1.025); Urobilinogen,Urine Normal (Normal)
[2016-12-15 02:20] LABS: Bacteria,Urine None Seen per hpf (None-Few); Hyaline Casts,Urine Few per lpf (None-Few); RBC,Urine 0-3 per hpf (0-3); Squamous Epithelial Cell,Urine Moderate per lpf (None-Few)
[2016-12-15 02:25] LABS: Amphetamine Screen,Urine Negative ng/mL (Cutoff=1000); Barbiturate Screen,Urine Negative ng/mL (Cutoff=200); Benzodiazepines Screen,Urine Negative ng/mL (Cutoff=200); Cannabinoid Screen,Urine Positive ng/mL (Cutoff = 50); Cocaine Screen,Urine Positive ng/mL (Cutoff= 300); Opiate Screen,Urine Positive ng/mL (Cutoff=300); Phencyclidine Screen,Urine Negative ng/mL (Cutoff=25)
[2016-12-15] MEDS ORDERED: *HR* LORazepam 1 MG TABLET PO PRN (04:23)
[2016-12-15] MEDS ORDERED: Mag Hydrox/Al Hydrox/Simeth 30 ML UDC PO PRN (04:23)
[2016-12-15] MEDS ORDERED: hydrOXYzine pamoate 25 MG CAPSULE PO PRN (04:23)
[2016-12-15] MEDS ORDERED: *HR* LORazepam 2 MG/ML VIAL IM PRN (04:23)
[2016-12-15] MEDS ORDERED: MOM Conc 10 ML UD.LIQ PO PRN (04:23)
[2016-12-15] MEDS ORDERED: Haloperidol Lactate 5 MG/ML VIAL IM PRN (04:23)
[2016-12-15] MEDS ORDERED: Acetaminophen 325 MG TABLET PO PRN (04:23)
--- NOTE | 2016-12-15 14:05 | Psychiatry History & Physical ---
Date of Encounter: 12/15/16 Time of Encounter: 13:40 History of Present Illness Patient Stated Chief Complaint: i wanted to hurt myself. Medicare Admission Attestation: For traditional Medicare patients the provided hospital inpatient services are reasonable and necessary and in the case of services not specified as inpatient -only under 42 CFR 419.22 (n), that they are appropriately provided as inpatient services in accordance 42 CFR 412.3. For Critical Access Hospital the patient may reasonably be expected to be discharged or transferred to a hospital within 96 hours after admission to the Critical Access Hospital. History of Present Illness: Mr. Covington is a 31 year old Single White male evaluated today ,lives with his parents who are supporting him. he has been recently depressed and suicidal and stressors are quitting his job, drugs use, unable to support his 5 yr old daughter. states he gets overwhelmed and cannot hold job for more than few weeks. He is still having suicidal ideation off and on but no plan at this time, he tried to hurt self by taking 5 pills of oxycodone and heroin 20 $ worth , has used iv. he also has been using cocain and benzo. as per him not used xanax in month and cocain 3 days ago. he also admits to mind racing, mood swings, impulsive , anger and easily frustrated , has generalized anxiety ,no psychosis . Family History: positive for substance abuse Maternal side . Brother had Alcohol and PTSD. pts tox positive for opiates, marijuana, cocain. Plan admit to inpatient for stabilization. close monitoring for suicidal ideation. medications to start Venlafaxin xr 75 mg po am, seroquel 100 mg hs, gabapentin 300 mg bid. side effects discussed with patient , informed consent obtained. discussed soberity and outpt rehab , pt agreed with plan. consider Naltrexone 50 mg for substance use. Past Med Surg Social Fam HX - Past Medical History Medical history: CHF - Past Psychiatric History Psychiatric history: Reports: anxiety, depression, previous psychiatric hospitalization Family psychiatric history: Yes Family Psychiatric History Details: Brother ALcoholism, PTSD. Maternal side substance use disorder. Family History of Suicide: None - Past Surgical History Surgical History: orthopedic, other - Social History Smoking Status: Current every day smoker Smokeless Tobacco Status: No Alcohol use: occasionally Drug use: cocaine, opiates, marijuana, IV Drug Use, prescription drug abuse, other - Family History Paternal Grandfather Hx Family GI Disorders: Yes (multiple family members with alpha 1 antitryptin c) Medications & Allergies No Known Home Drugs 12/15/16 [History] Allergies No Known Allergies Allergy (Verified 12/15/16 00:41) Review of Systems Psychiatric: Reports: anxiety, abnormal sleep pattern, suicidal ideation, difficulty concentrating, hopelessness, irritability, mood swings Mental Status Exam Level of alertness: Alert Patient appearance: Appropriate Behavior: cooperative, anxious Psychomotor activity: Normal Eye contact: Minimal Contact Mood description: Depressed, Anxious Affect description: congruent with mood Speech pattern: Normal rhythm Speech volume: Normal Thought process: Racing Thought content: Yes Suicidal ideation, Yes Guilt Attention span: Unable to Sustain Attention Memory description: Grossly Intact Patient reliability: Reliable Historian Intelligence estimate: Average Judgment: Limited Insight: Minimal Exam - HEENT ENT exam IM: Present: normal exam - Neurological Neurological exam IM: Present: alert, CN II-XII intact (pt had physical in emergency room), normal gait, oriented X3, reflexes normal - Additional Information Additional Information: has tatoos on back and chest Results - Vital Signs Vital signs: Temp Pulse Resp BP Pulse Ox 96.9 F L 81 14 114/88 99 12/15/16 09:00 12/15/16 09:00 12/15/16 09:00 12/15/16 09:00 12/15/16 00:41 - Labs Labs: Laboratory Last Values WBC 9.7 K/mcL (4.3-11.1) 12/15/16 01:07 RBC 4.94 M/mcL (4.19-5.50) 12/15/16 01:07 Hgb 14.3 g/dL (12.9-16.9) 12/15/16 01:07 Hct 42.7 % (37.5-50.1) 12/15/16 01:07 MCV 86.4 fL (83.0-100.0) 12/15/16 01:07 MCH 28.9 pg (28.0-33.3) 12/15/16 01:07 MCHC 33.5 g/dL (31.6-35.5) 12/15/16 01:07 RDW 12.4 % (11.5-14.5) 12/15/16 01:07 Plt Count 174 K/mcL (140-400) 12/15/16 01:07 MPV 9.3 fL (9.4-12.4) L 12/15/16 01:07 Immature Gran % 0.2 % (0-4) 12/15/16 01:07 Seg Neutrophils % 68.2 % 12/15/16 01:07 Lymphocytes % 20.9 % 12/15/16 01:07 Monocytes % 10.0 % 12/15/16 01:07 Eosinophils % 0.3 % 12/15/16 01:07 Basophils % 0.4 % 12/15/16 01:07 Neutrophils # 6.6 K/mcL (1.6-8.9) 12/15/16 01:07 Lymphocytes # 2.0 K/mcL (0.6-4.6) 12/15/16 01:07 Monocytes # 1.0 K/mcL (0.0-1.3) 12/15/16 01:07 Eosinophils # 0.0 K/mcL (0.0-0.6) 12/15/16 01:07 Basophils # 0.0 K/mcL (0.0-0.2) 12/15/16 01:07 Sodium 136 mEq/L (136-145) 12/15/16 01:07 Potassium 4.0 mEq/L (3.5-4.5) 12/15/16 01:07 Chloride 102 mEq/L (98-109) 12/15/16 01:07 Carbon Dioxide 25 mEq/L (19-29) 12/15/16 01:07 BUN 16 mg/dL (8-26) 12/15/16 01:07 Creatinine 0.98 mg/dL (0.72-1.25) 12/15/16 01:07 Est GFR ( Amer) > 60 (> 60) 12/15/16 01:07 Est GFR (Non-Af Amer) > 60 (> 60) 12/15/16 01:07 BUN/Creatinine Ratio 16 (6-26) 12/15/16 01:07 Glucose 86 mg/dL (70-99) 12/15/16 01:07 Calculated Osmolality 282 (280-300) 12/15/16 01:07 Calcium 9.4 mg/dL (8.6-10.8) 12/15/16 01:07 Urine Color Dark Yellow (Yellow) 12/15/16 02:08 Urine Clarity Clear (Clear) 12/15/16 02:08 Urine pH 6.0 pH Units (5.0-8.0) 12/15/16 02:08 Ur Specific [place] > 1.030 (1.010-1.025) H 12/15/16 02:08 Urine Protein 30 mg/dL (Neg-Trace) H 12/15/16 02:08 Urine Glucose (UA) Normal mg/dL (Normal) 12/15/16 02:08 Urine Ketones 15 mg/dL (Negative) H 12/15/16 02:08 Urine Blood Negative (Negative) 12/15/16 02:08 Urine Nitrite Negative (Negative) 12/15/16 02:08 Urine Bilirubin Small (Negative) H 12/15/16 02:08 Urine Urobilinogen Normal mg/dL (Normal) 12/15/16 02:08 Ur Leukocyte Esterase Negative (Negative) 12/15/16 02:08 Urine Microscopic RBC 0-3 per hpf (0-3) 12/15/16 02:08 Urine Microscopic WBC 3-5 per hpf (0-3) H 12/15/16 02:08 Ur Squamous Epith Cells Moderate per lpf (None-Few) H 12/15/16 02:08 Urine Bacteria None Seen per hpf (None-Few) 12/15/16 02:08 Hyaline Casts Few per lpf (None-Few) 12/15/16 02:08 Salicylates < 5.0 mg/dL (15-30) L 12/15/16 01:07 Urine Opiates Screen Positive ng/mL (Bgpgbs=744) H 12/15/16 02:08 Acetaminophen < 1.0 mcg/mL (10-30) L 12/15/16 01:07 Ur Barbiturates Screen Negative ng/mL (Axthvb=330) 12/15/16 02:08 Ur Phencyclidine Scrn Negative ng/mL (Cutoff=25) 12/15/16 02:08 Ur Amphetamines Screen Negative ng/mL (Kiunge=3606) 12/15/16 02:08 U Benzodiazepines Scrn Negative ng/mL (Vjegkr=519) 12/15/16 02:08 Urine Cocaine Screen Positive ng/mL (Cutoff= 300) H 12/15/16 02:08 U Marijuana (THC) Screen Positive ng/mL (Cutoff = 50) H 12/15/16 02:08 Ethyl Alcohol < 10 mg/dL (0-10) 12/15/16 01:07 Assessment and Plan (1) Suicidal ideation Current visit: Yes Status: Acute Plan: Admit inpatient for safety and stabilization Risks, benefits, side effects, alternatives discussed w/pt: Yes Patient agreeable to treatment: Yes Plans for Post Hospital Care: Transfer In Rehab [facility] (2) Bipolar II disorder Current visit: Yes Status: Acute Plan: Admit inpatient for safety and stabilization Risks, benefits, side effects, alternatives discussed w/pt: Yes Patient agreeable to treatment: Yes Plans for Post Hospital Care: Home (3) Opiate abuse, continuous Current visit: Yes Status: Acute Plan: Admit inpatient for safety and stabilization, Close observation, Suicide Precautions per unit protocol Risks, benefits, side effects, alternatives discussed w/pt: Yes Patient agreeable to treatment: Yes Plans for Post Hospital Care: Transfer In Rehab [facility] (4) Cocaine abuse Current visit: Yes Status: Acute Plan: Admit inpatient for safety and stabilization Risks, benefits, side effects, alternatives discussed w/pt: Yes Patient agreeable to treatment: Yes Plans for Post Hospital Care: Transfer In Rehab Fac
[2016-12-15] MEDS: Nicotine 2 MG GUM BC PRN ×2 (16:23→22:51)
[2016-12-15] MEDS: Gabapentin 300 MG CAPSULE PO SCH (21:07)
[2016-12-16] MEDS: Gabapentin 300 MG CAPSULE PO SCH ×2 (09:25→21:13)
[2016-12-16] MEDS: Venlafaxine XR (24 HR) 75 MG CAP.ER.24H PO SCH (09:25)
[2016-12-16] MEDS: Nicotine 2 MG GUM BC PRN (17:17)
[2016-12-17] MEDS: Venlafaxine XR (24 HR) 75 MG CAP.ER.24H PO SCH (08:07)
[2016-12-17] MEDS: Gabapentin 300 MG CAPSULE PO SCH ×2 (08:07→21:04)
--- NOTE | 2016-12-17 11:45 | Psychiatry Progress Note ---
Date of Encounter: 12/16/16 Time of Encounter: 14:30 Subjective Interval history: pt seen today , case discussed with staff and showing some improvement in structured enviorment. he is still anxious and sad but no suicidal ideations. he is wanting to go to rehab. at present medications just started and denies side effects. Review of Systems Psychiatric: Reports: anxiety, abnormal sleep pattern, difficulty concentrating , hopelessness, irritability, mood swings Objective: Exam Patient orientation: Yes Time, Yes Place Level of alertness: Alert Patient appearance: Appropriate Behavior: cooperative Psychomotor activity: Increased Eye contact: Maintains Eye Contact Mood description: Anxious Affect description: incongruent with mood Speech pattern: Normal rate Speech volume: Normal Thought process: Logical Thought content: Yes Preoccupation Judgment: Limited Insight: Partial Results - Vital Signs Vital Signs: Temp Pulse Resp BP Pulse Ox 97.2 F L 62 16 123/80 99 12/17/16 08:47 12/17/16 08:47 12/17/16 08:47 12/17/16 08:47 12/15/16 00:41 Assessment and Plan (1) Suicidal ideation Current visit: Yes Status: Acute Risks, benefits, side effects, alternatives discussed w/pt: Yes Patient agreeable to treatment: Yes (2) Bipolar II disorder Current visit: Yes Status: Acute Risks, benefits, side effects, alternatives discussed w/pt: Yes Patient agreeable to treatment: Yes (3) Opiate abuse, continuous Current visit: Yes Status: Acute Risks, benefits, side effects, alternatives discussed w/pt: Yes Patient agreeable to treatment: Yes (4) Cocaine abuse Current visit: Yes Status: Acute Risks, benefits, side effects, alternatives discussed w/pt: Yes Patient agreeable to treatment: Yes Consult Discharge Plan - Plan Referrals: NO,PCP [Primary Care Provider] -
--- NOTE | 2016-12-17 11:57 | Psychiatry Progress Note ---
Date of Encounter: 12/17/16 Time of Encounter: 11:50 Subjective Interval history: patient seen today , case discussed with staff. today i am not so good, all things coming back and all the burden, sleep is getting better. feeling sad and hopeless and down today. denies suicidal ideations, i am getting overwhelmed. denies side effects from medications. will increase dose of his medications . Review of Systems Psychiatric: Reports: anxiety, abnormal sleep pattern, difficulty concentrating , hopelessness, irritability, mood swings Objective: Exam Level of alertness: Alert Patient appearance: Appropriate Behavior: withdrawn Psychomotor activity: Slowed Eye contact: Minimal Contact Mood description: Depressed Affect description: congruent with mood, dysphoric Speech pattern: Slowed Thought process: Slowed Thinking Thought content: Yes Guilt Judgment: Limited Insight: Minimal Results - Vital Signs Vital Signs: Temp Pulse Resp BP Pulse Ox 97.2 F L 62 16 123/80 99 12/17/16 08:47 12/17/16 08:47 12/17/16 08:47 12/17/16 08:47 12/15/16 00:41 Assessment and Plan (1) Suicidal ideation Current visit: Yes Status: Acute Risks, benefits, side effects, alternatives discussed w/pt: Yes Patient agreeable to treatment: Yes (2) Bipolar II disorder Current visit: Yes Status: Acute Risks, benefits, side effects, alternatives discussed w/pt: Yes Patient agreeable to treatment: Yes (3) Opiate abuse, continuous Current visit: Yes Status: Acute Risks, benefits, side effects, alternatives discussed w/pt: Yes Patient agreeable to treatment: Yes (4) Cocaine abuse Current visit: Yes Status: Acute Risks, benefits, side effects, alternatives discussed w/pt: Yes Patient agreeable to treatment: Yes Consult Discharge Plan - Plan Referrals: NO,PCP [Primary Care Provider] -
[2016-12-17] MEDS: Venlafaxine XR (24 HR) 37.5 MG CAP.ER.24H PO SCH (13:01)
[2016-12-17] MEDS: Nicotine 2 MG GUM BC PRN (21:27)
[2016-12-18] MEDS: Gabapentin 300 MG CAPSULE PO SCH ×2 (09:17→21:00)
[2016-12-18] MEDS: Venlafaxine XR (24 HR) 75 MG CAP.ER.24H PO SCH (09:18)
[2016-12-18] MEDS: Venlafaxine XR (24 HR) 37.5 MG CAP.ER.24H PO SCH (09:18)
--- NOTE | 2016-12-18 12:25 | Psychiatry Progress Note ---
Date of Encounter: 12/18/16 Time of Encounter: 12:17 Subjective Interval history: Patient seen today and case discussed with staff. Patient states he talked to her mother and is working on going to rehab. treatment programme and try to remain sober. moods are low but getting better, sleep is also improving. denies suicidal ideation. at present plan to [place] on Wednesday to inpatient rehab. continue meds , denies side effects. Review of Systems Psychiatric: Reports: anxiety, hopelessness, mood swings Objective: Exam Patient orientation: Yes Person, Yes Time, Yes Place Level of alertness: Alert Patient appearance: Appropriate Behavior: calm, cooperative Psychomotor activity: Normal Eye contact: Maintains Eye Contact Mood description: Anxious Affect description: congruent with mood Speech pattern: Normal rate Speech volume: Normal Thought process: Racing Thought content: Yes Intact Judgment: Limited Insight: Partial Results - Vital Signs Vital Signs: Temp Pulse Resp BP Pulse Ox 97.7 F 63 16 122/87 99 12/18/16 09:00 12/18/16 09:00 12/18/16 09:00 12/18/16 09:00 12/15/16 00:41 Assessment and Plan (1) Suicidal ideation Current visit: Yes Status: Acute Risks, benefits, side effects, alternatives discussed w/pt: Yes Patient agreeable to treatment: Yes (2) Bipolar II disorder Current visit: Yes Status: Acute Risks, benefits, side effects, alternatives discussed w/pt: Yes Patient agreeable to treatment: Yes (3) Opiate abuse, continuous Current visit: Yes Status: Acute Risks, benefits, side effects, alternatives discussed w/pt: Yes Patient agreeable to treatment: Yes (4) Cocaine abuse Current visit: Yes Status: Acute Risks, benefits, side effects, alternatives discussed w/pt: Yes Patient agreeable to treatment: Yes Consult Discharge Plan - Plan Referrals: NONE,PCP [Primary Care Provider] -
[2016-12-19] MEDS: Venlafaxine XR (24 HR) 75 MG CAP.ER.24H PO SCH (08:47)
[2016-12-19] MEDS: Gabapentin 300 MG CAPSULE PO SCH ×2 (08:47→20:26)
[2016-12-19] MEDS: Venlafaxine XR (24 HR) 37.5 MG CAP.ER.24H PO SCH (08:47)
--- NOTE | 2016-12-19 11:45 | Psychiatry Progress Note ---
Date of Encounter: 12/19/16 Time of Encounter: 09:00 Subjective Interval history: Patient seen today and case d/w staff. he is showing improvement. states i have plan and i have out patient and inpatient rehab. programme sorted out. my mother will take me back if i continue treatment. he is compliant with treatment and denies side effects. moods are better,still anxious , sleep is good now , appetite good and denies suicidal ideation. Review of Systems Psychiatric: Reports: anxiety, mood swings Objective: Exam Patient orientation: Yes Person, Yes Time, Yes Place Level of alertness: Alert Patient appearance: Appropriate Behavior: cooperative, anxious Psychomotor activity: Normal Eye contact: Maintains Eye Contact Mood description: Anxious Affect description: congruent with mood Speech pattern: Normal rate Speech volume: Normal Thought process: Racing Thought content: Yes Intact Judgment: Fair Insight: Partial Results - Vital Signs Vital Signs: Temp Pulse Resp BP Pulse Ox 98.7 F 77 16 110/71 99 12/19/16 09:00 12/19/16 09:00 12/19/16 09:00 12/19/16 09:00 12/15/16 00:41 Assessment and Plan (1) Suicidal ideation Current visit: Yes Status: Acute Risks, benefits, side effects, alternatives discussed w/pt: Yes Patient agreeable to treatment: Yes (2) Bipolar II disorder Current visit: Yes Status: Acute Risks, benefits, side effects, alternatives discussed w/pt: Yes Patient agreeable to treatment: Yes (3) Opiate abuse, continuous Current visit: Yes Status: Acute Risks, benefits, side effects, alternatives discussed w/pt: Yes Patient agreeable to treatment: Yes (4) Cocaine abuse Current visit: Yes Status: Acute Risks, benefits, side effects, alternatives discussed w/pt: Yes Patient agreeable to treatment: Yes Consult Discharge Plan - Plan [facility]: [facility]] - 12/28/16 2:00 pm (The above appointment is with Kylee Nicholas. When you come to your first appointment, you will have an orientation to the agency and you will meet with a counselor. You will receive follow- up appointments for on-going services, which could include community support, mental health and substance abuse counseling, groups/ partial hospitalization programming, medication assisted treatment, and psychiatric medication management. Please bring the following with you to your first visit to the clinic: 1) proof of household income (two consecutive pay stubs, social security award letter, bank statement, statement letter from [facility] , child support statement, IRS 1040 or W2 form, or a statement from the person who financially supports you stating they help provide for your basic needs), 2 ) proof of residency (drivers license, a piece of mail showing your address, a statement from person you live with verifying you live at their address), 3) your social security card, 4) photo ID, 5) your insurance card (if you have commercial insurance you must call to obtain a prior authorization number before you arrive to your first appointment) and 6) if you do not have insurance but have applied for Medicaid, please bring verification you have applied. This is the first available appointment. You may contact the office regularly to check for cancellations that may allow you to be seen sooner. ) Ping Chaparro MD [Partnered Physician] - 12/24/16 2:00 pm (The above appointment is with Dr. Chaparro for primary healthcare and medication management services. Dr. Chaparro is filling in for Dr. Duval, who is leaving the practice.)
[2016-12-19] MEDS: Nicotine 2 MG GUM BC PRN (13:55)
[2016-12-20] MEDS: Venlafaxine XR (24 HR) 75 MG CAP.ER.24H PO SCH (08:56)
[2016-12-20] MEDS: Venlafaxine XR (24 HR) 37.5 MG CAP.ER.24H PO SCH (08:56)
[2016-12-20] MEDS: Gabapentin 300 MG CAPSULE PO SCH ×2 (08:56→21:07)
--- NOTE | 2016-12-20 13:23 | Psychiatry Progress Note ---
Date of Encounter: 12/20/16 Time of Encounter: 13:16 Subjective Interval history: Patient seen today , case discussed with staff . patient states sleep and apetite is good, i feel medications are working, denies suicidal ideatins, is compliant with medications. he has cluster b traits , everything changed after i talked to my mother. he wants to do inpatient rehab. denies side effects, no RLS. consider naltrexone , discussed with patient he doesnot want it , states i want natural. Review of Systems Psychiatric: Reports: anxiety, mood swings Objective: Exam Patient orientation: Yes Person, Yes Time, Yes Place Level of alertness: Alert Patient appearance: Appropriate Behavior: cooperative Psychomotor activity: Normal Eye contact: Maintains Eye Contact Mood description: Anxious Affect description: congruent with mood Speech pattern: Normal rate Speech volume: Normal Thought process: Intact Thought content: Yes Intact Judgment: Fair Insight: Minimal Results - Vital Signs Vital Signs: Temp Pulse Resp BP Pulse Ox 98.0 F 64 16 123/82 99 12/20/16 08:30 12/20/16 08:30 12/20/16 08:30 12/20/16 08:30 12/15/16 00:41 Assessment and Plan (1) Suicidal ideation Current visit: Yes Status: Acute Risks, benefits, side effects, alternatives discussed w/pt: Yes Patient agreeable to treatment: Yes (2) Bipolar II disorder Current visit: Yes Status: Acute Risks, benefits, side effects, alternatives discussed w/pt: Yes Patient agreeable to treatment: Yes (3) Opiate abuse, continuous Current visit: Yes Status: Acute Risks, benefits, side effects, alternatives discussed w/pt: Yes Patient agreeable to treatment: Yes (4) Cocaine abuse Current visit: Yes Status: Acute Risks, benefits, side effects, alternatives discussed w/pt: Yes Patient agreeable to treatment: Yes Consult Discharge Plan - Plan Referrals: Gianni Cantu [facility] [place] - 12/28/16 2:00 pm (The above appointment is with Kylee Nicholas. When you come to your first appointment, you will have an orientation to the agency and you will meet with a counselor. You will receive follow- up appointments for on-going services, which could include community support, mental health and substance abuse counseling, groups/ partial hospitalization programming, medication assisted treatment, and psychiatric medication management. Please bring the following with you to your first visit to the clinic: 1) proof of household income (two consecutive pay stubs, social security award letter, bank statement, statement letter [facility] , child support statement, IRS 1040 or W2 form, or a statement from the person who financially supports you stating they help provide for your basic needs), 2 ) proof of residency (drivers license, a piece of mail showing your address, a statement from person you live with verifying you live at their address), 3) your social security card, 4) photo ID, 5) your insurance card (if you have commercial insurance you must call to obtain a prior authorization number before you arrive to your first appointment) and 6) if you do not have insurance but have applied for Medicaid, please bring verification you have applied. This is the first available appointment. You may contact the office regularly to check for cancellations that may allow you to be seen sooner. ) Ping Chaparro MD [Partnered Physician] - 12/24/16 2:00 pm (The above appointment is with Dr. Chaparro for primary healthcare and medication management services. Dr. Chaparro is filling in for Dr. Duval, who is leaving the practice.)
[2016-12-20] MEDS: Nicotine 2 MG GUM BC PRN ×2 (13:32→21:08)
[2016-12-21] MEDS: Venlafaxine XR (24 HR) 75 MG CAP.ER.24H PO SCH (08:48)
[2016-12-21] MEDS: Gabapentin 300 MG CAPSULE PO SCH (08:48)
[2016-12-21] MEDS: Venlafaxine XR (24 HR) 37.5 MG CAP.ER.24H PO SCH (08:48)
[2016-12-21 10:38] VITALS: BP 121/83
--- NOTE | 2016-12-21 12:07 | Discharge Summary ---
Date of Encounter: 12/21/16 Time of Encounter: 11:00 Diagnosis - Discharge Diagnosis (1) Bipolar II disorder Priority: Primary Status: Acute (2) Cocaine abuse Status: Acute (3) Opiate abuse, continuous Status: Acute Medications - Discharge Medications Prescriptions: Gabapentin [Neurontin] 300 mg PO BID #60 / hydrOXYzine pamoate [HydrOXYzine Pamoate] 25 mg PO TID PRN #90 PRN Reason: Anxiety Quetiapine Fumarate [Seroquel] 50 mg PO HS PRN #30 tab PRN Reason: Insomnia Quetiapine Fumarate [Seroquel] 100 mg PO HS #30 tab Venlafaxine XR (24 HR) [Effexor Xr] 37.5 mg PO DAILY #30 Venlafaxine XR (24 HR) [Effexor XR] 75 mg PO DAILY #30 Gabapentin [Neurontin] 300 mg PO BID #60 / 12/21/16 [Rx] Quetiapine Fumarate [Seroquel] 50 mg PO HS PRN #30 tab 12/21/16 [Rx] Quetiapine Fumarate [Seroquel] 100 mg PO HS #30 tab 12/21/16 [Rx] Venlafaxine XR (24 HR) [Effexor XR] 75 mg PO DAILY #30 12/21/16 [Rx] Venlafaxine XR (24 HR) [Effexor Xr] 37.5 mg PO DAILY #30 12/21/16 [Rx] hydrOXYzine pamoate [HydrOXYzine Pamoate] 25 mg PO TID PRN #90 12/21/16 [Rx] Allergies No Known Allergies Allergy (Verified 12/15/16 00:41) Provider Date of admission: 12/15/16 04:08 Primary care physician: PCP NONE Discharging clinician: Shahana Dial Assessment and Plan - Patient/Caregiver Discharge Instructions Activity: resume usual activities as tolerated Diet: regular diet - Follow up Plan Follow up with: Gianni Rodriguez [Outside] - 12/28/16 2:00 pm (The above appointment is with Kylee Nicholas. When you come to your first appointment, you will have an orientation to the agency and you will meet with a counselor. You will receive follow- up appointments for on-going services, which could include community support, mental health and substance abuse counseling, groups/ partial hospitalization programming, medication assisted treatment, and psychiatric medication management. Please bring the following with you to your first visit to the clinic: 1) proof of household income (two consecutive pay stubs, social security award letter, bank statement, statement letter from [facility] , child support statement, IRS 1040 or W2 form, or a statement from the person who financially supports you stating they help provide for your basic needs), 2 ) proof of residency (drivers license, a piece of mail showing your address, a statement from person you live with verifying you live at their address), 3) your social security card, 4) photo ID, 5) your insurance card (if you have commercial insurance you must call to obtain a prior authorization number before you arrive to your first appointment) and 6) if you do not have insurance but have applied for Medicaid, please bring verification you have applied. This is the first available appointment. You may contact the office regularly to check for cancellations that may allow you to be seen sooner. ) Ping Chaparro MD [Partnered Physician] - 12/24/16 2:00 pm (The above appointment is with Dr. Chaparro for primary healthcare and medication management services. Dr. Chaparro is filling in for Dr. Duval, who is leaving the practice.) Functional capacity at discharge: independent ambulation Overall status at discharge: Stable Disposition: Home, Self-Care Hospital Course Hospital course: Mr. Covington is a 31 year old male with a history of bipolar 2, substance use issues who presented to the hospital with depression and suicidal ideation after an apparent overdose. He was admitted to for psychiatric stabilization. Patient was incorporated therapeutic milieu and officer in individual as well as recreational therapy. He was also offered psychoeducational materials and supportive therapy. He was placed on suicide precautions and close observation per unit protocol. Patient was placed on Seroquel and Effexor and tolerated these medications well. Patient was initially suicidal but throughout the course of the hospital stay his mood improved. He was interested in getting help for his substance abuse issues and does have a plan to attend a inpatient rehabilitation. Patient did attend some group and unit activities during his hospitalization. At the time of discharge she reported improved mood. He denied suicidal or homicidal ideation, intent, or plan. Patient was more future oriented and looking forward to rehabilitation which he thinks will start in 2-3 weeks. Patient feels comfortable waiting this long to attend rehabilitation. He does have a friend he can stay with. Patient's friend Oseas phone number verbalized to this provider that he feels comfortable with Eddie coming to stay with him. No guns or weapons at Oseas's home. Oseas will encourage him to attend his outpatient mental and substance abuse treatment because they met in [facility]. Does patient wish to continue nicotine replacement upon disc: No - Time Spent with Patient Total time spent providing and/or coordinating discharge services: Greater than 30 minutes Quality - Multiple Antipsychotics Patient discharged on 2 or more antipsychotic medications: No Procedures - Procedures Procedures: Medication Management, Crisis Stabilization, Supportive Therapy, Group Therapy, Psychoeducational Therapy Mental Status Exam - Mental Status Exam Patient orientation: Yes Person, Yes Time, Yes Place Level of alertness: Alert Patient appearance: Appropriate, Well Groomed Behavior: calm, cooperative Psychomotor activity: Normal Eye contact: Maintains Eye Contact Mood description: Euthymic/stable Affect description: congruent with mood, full range Speech pattern: Normal rate, Normal rhythm, Normal tone Speech Volume: Normal Thought process: Linear, Goal Oriented Thought Content: No Suicidal ideation, No Homicidal ideation, No Overt delusions Perceptual Disturbances: No Auditory hallucinations, No Visual hallucinations Judgment: Limited Insight: Partial
== END 2016-12-21 14:08 | disposition home or self-care (01) | DRG 812 ==
LOC: EMEROO 00:39 → 1ANU 04:08
PROVIDERS: ADMIT Psychiatry & Neurology Psychiatry; ATTEND Psychiatry & Neurology Psychiatry